=== PATIENT | female | born 1955 | race Caucasian/White ===

== ENCOUNTER 2020-04-29 18:23 | Emergency (ER) | payer BC, SELFPAY ==
--- NOTE | ~2020-04-29 | XR_ITS ---
EXAMINATION: XR chest 2V 04/29/2020 19:13 INDICATION: Left-sided chest pain PROCEDURE: 2 view chest COMPARISON: 01/12/2017 FINDINGS: The lungs are clear. The cardiomediastinal silhouette is within normal limits. There are no pleural effusions. There is no pneumothorax suspected. IMPRESSION: 1: NO ACUTE CARDIOPULMONARY DISEASE. Reviewed, dictated and finalized at location A.
--- NOTE | ~2020-04-29 | CT_ITS ---
EXAMINATION: CT abdomen pelvis w con DATE: 04/29/2020 20:32 INDICATION: Upper abdominal pain TECHNIQUE: Computed tomography (CT) of the abdomen and pelvis was performed with 100 cc Omnipaque 350 intravenous contrast. The dose-length product was 683.80 mGy-cm. Automated exposure control and iter ative reconstruction technique were employed. COMPARISON: None. FINDINGS: The lung bases are unremarkable. Heart size is normal. No significant pleural or pericardia l effusion. The liver, spleen, pancreas, adrenal glands are unremarkable. There are left renal cysts. There is a 4 mm nonobstructing right renal stone. Colonic diverticulosis without evidence for acute diverticulitis. There is a 2 cm left ovarian cyst. Bladder wall is thickened. There is a sclerotic lesion the right ilium, likely a bone island. There i s an atherosclerosis of the aorta. There is mild lumbar spondylosis. No free air or free fluid. Uteru s is surgically absent. IMPRESSION: 1. No acute abdominal abnormality. 2: Nonobstructing right nephrolithiasis. 3: Left ovarian cyst measuring 2 cm. 4: Bladder wall thickening, possibly due to underdistention or cystitis. Reviewed, dictated and finalized at location A.
[2020-04-29 18:30] VITALS: BP 159/81; PULSE 84; RESP 20; TEMP 36.8; O2SAT 100
--- NOTE | 2020-04-29 18:48 | ECG_ITS ---
Measurements Intervals [place] Rate: 71 P: -18 DE: 136 QRS: -15 QRSD: 89 T: 50 QT: 399 QTc: 434 Interpretive Statements SINUS RHYTHM DELAYED PRECORDIAL R/S TRANSITION CONSIDER INFERIOR INFARCT, AGE INDETERMINATE BASELINE ARTIFACT- V5 ABNORMAL ECG Electronically Signed On 04-30-2020 6:51:13 CDT by Robert Brown D.O.
[2020-04-29 19:06] LABS: Basophils Percent Auto 0.4 % (0.2-1.2); Eosinophils Absolute Auto 0.2 K/mm3 (0-0.3); Eosinophils Percent Auto 1.7 % (0-4.4); Hematocrit 41.1 % (37.0-47.0); Hemoglobin 14.2 g/dL (12.0-15.0); Immature Granulocyte Absolute 0.03 K/mm3 (0.00-0.031); Immature Granulocyte Percent A 0.3 % (0-0.5); Lymphocytes Absolute Auto 2.68 K/mm3 (0.9-3.2); Lymphocytes Percent Auto 28.2 % (18.3-44.2); Mean Corpuscular HGB Conc 34.5 g/dl (32-36); Mean Corpuscular Hemoglobin 32.6 pg (26-34); Mean Corpuscular Volume 94.3 fl (80-100); Mean Platelet Volume 9.4 fl (7.4-10.4); Monocytes Absolute Auto 0.5 K/mm3 (0.1-0.6); Monocytes Percent Auto 5.1 % (2.6-8.5); Neutrophils Absolute Auto 6.1 K/mm3 (1.3-6.7); Neutrophils Percent Auto 64.3 % (45.5-73.1); Platelet Count Result 259 k/mm3 (150-375); Red Blood Count 4.36 M/mm3 (4.2-5.4); Red Cell Distribution Width 12.6 % (11.5-14.5); White Blood Count 9.5 K/mm3 (4.5-10.0)
--- NOTE | 2020-04-29 19:15 | ED.ABDPAIN ---
HPI - Abdominal Pain General Chief Complaint: Abdominal Pain Stated Complaint: left upper quad abd pain Time Seen by Provider: 04/29/20 18:36 Source: patient Mode of arrival: ambulatory Limitations: no limitations History of Present Illness HPI narrative: This is a 64 year old female that presents to the ER for abdominal pain since this morning. Reports constant LUQ abdominal pain. Reports it feels like she has a gas bubble. Reports she has been having this pain intermittently for the last couple of months. Reports she has not seen anyone for this yet. Had one episode of diarrhea. Denies fever, chest pain, shortness of breath, nausea, vomiting, dysuria or hematuria. Related Data Allergies Allergy/AdvReac Type Severity Reaction Status Date / Time adhesive Allergy Unknown Rash Verified 04/29/20 19:12 Review of Systems Review of Systems: Narrative: CONSTITUTIONAL: Denies fever CARDIOVASCULAR: Denies chest pain RESPIRATORY: Denies dyspnea. GASTROINTESTINAL: Reports abdominal pain and diarrhea. Denies nausea, vomiting GENITOURINARY: Denies dysuria or hematuria. All systems reviewed & are unremarkable except as noted in HPI and below PMFSH Past Medical History Medical History (Updated 04/29/20 @ 21:09 by Lakeshia Jeter PA-C) History of coronary artery disease History of hyperlipidemia History of hypertension Surgical History Surgical History (Updated 04/29/20 @ 19:18 by Lakeshia Jeter PA-C) History of coronary artery stent placement Exam Narrative: Exam Narrative: GENERAL: Well-appearing, well-nourished, and in no acute distress. HEAD: Normocephalic, atraumatic. EYES: EOMI. CHEST: Clear to auscultation. No respiratory distress. No wheezes rales or rhonchi HEART: Regular rate and rhythm. No murmur heard. Normal peripheral pulses. ABDOMEN: Soft, nontender, nondistended, normal active bowel sounds. EXTREMITIES: Normal range of motion. No edema. SKIN: Warm, dry, no rash. NEURO: No focal deficits. Alert and oriented x3. PSYCH: Normal mood and affect Course Vital Signs Vital signs: Vital Signs Temperature 98.2 F 04/29/20 18:30 Pulse Rate 84 04/29/20 18:30 Respiratory Rate 20 04/29/20 18:30 Blood Pressure 159/81 H 04/29/20 18:30 Pulse Oximetry 100 04/29/20 18:30 Temperature 98.2 F 04/29/20 18:30 Pulse Rate 84 04/29/20 18:30 Respiratory Rate 20 04/29/20 18:30 Blood Pressure 159/81 H 04/29/20 18:30 Pulse Oximetry 100 04/29/20 18:30 MDM - Abdominal Pain MDM Narrative Medical decision making narrative: Patient presents the emergency department for left-sided chest/abdominal pain. She is afebrile and nontoxic-appearing. CBC is without leukocytosis. Metabolic panel without concerning findings. Lipase is not elevated. EKG without concerning changes. Troponin is not elevated. Chest x-ray is normal. D-dimer is not elevated. UA without evidence of infection. CT scan of the abdomen and pelvis is without acute intra-abdominal abnormality. Patient and family updated on case findings. Patient is stable and felt appropriate for further outpatient evaluation. She was given warnings to return to the ER Lab Data Attestation: I reviewed the patient's lab results. Result diagrams: 04/29/20 18:59 04/29/20 18:59 Labs: Lab Results 04/29/20 04/29/20 04/29/20 Range/Units 18:59 18:59 18:59 WBC 9.5 (4.5-10.0) K/mm3 RBC 4.36 (4.2-5.4) M/mm3 Hgb 14.2 (12.0-15.0) g/dL Hct 41.1 (37.0-47.0) % MCV 94.3 (80-100) fl MCH 32.6 (26-34) pg MCHC 34.5 (32-36) g/dl RDW 12.6 (11.5-14.5) % Plt Count 259 (150-375) k/mm3 MPV 9.4 (7.4-10.4) fl Immature Gran % (Auto) 0.3 (0-0.5) % Neut % (Auto) 64.3 (45.5-73.1) % Lymph % (Auto) 28.2 (18.3-44.2) % [place] % (Auto) 5.1 (2.6-8.5) % Eos % (Auto) 1.7 (0-4.4) % Baso % (Auto) 0.4 (0.2-1.2) % Lymph # (Auto) 2.68 (0.9-3.2) K/mm3 [place] # (Auto) 0.5
[2020-04-29 19:16] LABS: INR 0.9; Prothrombin Time 12.3 Seconds (11.1-14.7)
[2020-04-29 19:17] LABS: Partial Thromboplastin Time 27.8 SECONDS (22.3-36.8)
[2020-04-29 19:19] LABS: Alanine Aminotransferase 29 U/L (4-35); Albumin Level 3.9 g/dL (3.5-5.1); Alkaline Phosphatase 79 U/L (38-126); Anion Gap 9.7 mmol/L (7-16); Aspartate Amino Transferase 25 U/L (14-36); Bilirubin,Total 0.5 mg/dL (0.2-1.3); Blood Urea Nitrogen 8 mg/dL (7-17); Calcium 8.8 mg/dL (8.4-10.2); Carbon Dioxide 25 mmol/L (22-30); Chloride 104 mmol/L (98-107); Estimated CRCL calculation 96 ml/min; Estimated Glomerular Filt Rate > 60; Glucose 104 mg/dL (65-105); Lipase 179 U/L (23-300); Potassium 3.7 mmol/L (3.4-5.0); Sodium 135 mmol/L (137-145)
[2020-04-29 19:30] LABS: Troponin I < 0.012 ng/mL (0.000-0.034)
[2020-04-29 19:41] LABS: D Dimer < 0.22 ug/mL (<0.48)
[2020-04-29 19:43] LABS: Add Urine Microscopic? NO; Appearance Urine Clear (Clear); Bacteria Urine Trace /hpf; Bilirubin Urine Negative (Negative); Blood Urine Negative (Negative); Color Urine Straw (Yellow); Glucose Urine UA Negative (Negative); Ketones Urine Negative (Negative); Leukocyte Esterase Ur Negative LEU/UL (Negative); Mucus Urine Rare /lpf; Nitrate Urine Negative (Negative); Protein Urine Negative (Negative); RBC Urine 0-2 /hpf (0-2); Specific Grav Ur 1.005 (1.001-1.035); Squamous Epithelial Cell Urine Rare /hpf (Few); Urobilinogen Urine Negative mg/dL (<2.0); WBC Urine 0-3 /hpf
[2020-04-29 21:14] VITALS: BP 141/87; PULSE 79; RESP 20; O2SAT 98
== END 2020-04-29 21:36 | disposition home or self-care (01) ==
PROVIDERS: Physician Assistant; Emergency Provider Emergency Medicine
DX: R10.12 Left upper quadrant pain (principal); I25.10 Atherosclerotic heart disease of native coronary artery without angina pectoris; E78.5 Hyperlipidemia, unspecified; I10 Essential (primary) hypertension; Z95.5 Presence of coronary angioplasty implant and graft; N20.0 Calculus of kidney; N83.202 Unspecified ovarian cyst, left side; R93.41 Abnormal radiologic findings on diagnostic imaging of renal pelvis, ureter, or bladder; R94.31 Abnormal electrocardiogram [ECG] [EKG]
CPT/HCPCS: 36415; 71046; 74177; 80053; 81003; 83690; 84484; 85025; 85380; 85610; 85730; 93005; 96365; 99284; J0131; Q9967

== ENCOUNTER 2024-10-10 13:35 | Outpatient (CLI) | payer OTHER, SELFPAY ==
--- NOTE | ~2024-10-10 | MM_ITS ---
EXAMINATION: MM screening tiara BI w ella HISTORY: Screening TECHNIQUE: Craniocaudal and mediolateral oblique 3-D tomosynthesis images were obtained and synthetic 2-D images were generated. CAD analysis was submitted and interpreted. COMPARISON: 07/21/2016 BREAST PARENCHYMAL COMPOSITION: Not dense: There are scattered areas of fibroglandular density. FINDINGS: There is no evidence of suspicious mass, calcification, or architectural distortion to sugg est malignancy in either breast. There has been no suspicious interval change. IMPRESSION: 1. No mammographic evidence of malignancy. 2. Recommend routine screening mammography in one year. BI-RADS Category 1: Negative. Reviewed, dictated and finalized at location B. STANT LIBRARIAN
== END 2024-10-10 13:36 | disposition home or self-care (01) ==
LOC: MICIMG 13:37
PROVIDERS: Visit Provider Internal Medicine
DX: Z12.31 Encounter for screening mammogram for malignant neoplasm of breast (principal)
CPT/HCPCS: 77063; 77067

== ENCOUNTER 2024-11-09 18:54 | Emergency (ER) | payer OTHER, SELFPAY ==
--- NOTE | ~2024-11-09 | XR_ITS ---
Exam: Abdomen 1V HISTORY: ureterolithiasis COMPARISON: Reference is made to a CT examination of the abdomen and pelvis performed the same day, a pproximately 1 hour earlier. TECHNIQUE: Supine images of the abdomen FINDINGS: Bowel gas pattern is non-obstructive. There is no free air or deep sulci. Contrast is identified opacifying the left renal collecting system. Contrast is also detected within the right renal cortex of the enlarged right kidney without excretio n, consistent with patient's history of obstruction on CT examination. Contrast also opacifies of the bladder, precluding adequate visualization of the 6.4mm calculus. Lung bases are unremarkable. Bones and soft tissues are unremarkable. IMPRESSION: Nonspecific, nonobstructive bowel gas pattern. Excretion from the left kidney. Persistent nephrogram phase of the right kidney, consistent with obstruction. Reviewed, dictated and finalized at location [facility]
--- NOTE | ~2024-11-09 | CT_ITS ---
CLINICAL INDICATION: Right-sided abdominal pain COMPARISON: 04/29/2020. TECHNIQUE: Multiple contiguous axial images of the abdomen and pelvis were performed following the ad ministration of with 100 mL Omnipaque-350 intravenous contrast The dose-length product (DLP) was 339.43 mGy-cm. Automated exposure control and iterative reconstruction technique were employed. FINDINGS/OBSERVATIONS: Visualized lower thorax: The bilateral lung bases are clear. The heart is of normal size, without pericardial effusion. Liver: The liver enhances homogeneously and is borderline enlarged measuring 19 cm in longitudinal dimension . Gallbladder and biliary system: The gallbladder is only minimally distended, and otherwise unremarkable. Pancreas: The pancreas enhances homogeneously without ductal dilatation. Spleen: The spleen enhances homogeneously and is not enlarged measuring 6 cm in longitudinal dimension. Kidneys: Significant right-sided hydroureteronephrosis extending to the distal right ureter where a 6.4 mm magdalena culus is identified. Mild left-sided hydroureteronephrosis secondary to chronic ureteropelvic junction obstruction. Adrenal glands: Unremarkable. Gastrointestinal tract: Colonic diverticulosis without surrounding inflammatory change. Appendix: The air-filled appendix is of normal caliber (axial series, images 117 through 128). Vasculature: Calcified atherosclerotic disease. Lymph nodes: No pathologically enlarged or morphologically suspicious lymph nodes within the retroperitoneum or at the root of the mesentery. Pelvic structures: The bladder is decompressed and otherwise unremarkable. The uterus is either surgically absent or markedly atrophic. Body wall and musculoskeletal: Small fat-containing umbilical hernia. No significant degenerative disease within the lower thoracic or lumbosacral spines. IMPRESSION: Significant right-sided hydroureteronephrosis secondary to a 6.4 mm calculus within the distal right ureter. Reviewed, dictated and finalized at location A. [employer] IMPRESSION: Significant right-sided hydroureteronephrosis secondary to a 6.4 mm calculus wi thin the distal right ureter.
--- OUTSIDE RECORDS SUMMARY | 2024-11-09 18:57 | XMS_ITS | Clinical Summary ---
Author Organization [facility] [address] Address [address] [place] [address] Care Team Providers Care Scientific Laboratory Supervisor Name Role Phone Haroon Casey MD Primary Care Provider [phone] Allergies No known active allergies Medications famotidine (PEPCID AC) 10 mg tablet take 1 tablet by oral route every day as needed 0 0 01/28/20 17 Active mometasone (NASONEX) 50 mcg/actuation nasal sprayIndicatio ns:Chronic Non-Allergic Rhinitis Administer 2 sprays into each nostril daily. 17 g 11 04/25/20 17 Active cyanocobalamin (Vitamin B-12) 1,000 mcg tabletIndicati ons:Prevention of Vitamin B12 Deficiency Take 1 tablet (1,000 mcg total) by mouth daily Active GLUCOSAMINE/CH ONDR CHAPA A SOD (GLUCOSAMINE-C HONDROITIN) 1,500-1,200 mg/30 mL liquid Take by mouth. Activ e multivitamin capsule Take 1 capsule by mouth daily Active aspirin 81 mg chewable tablet TAKE 1 TABLET BY MOUTH EVERY DAY 90 tablet 2 12/10/19 22 Active fexofenadine (MARKIE) 180 mg tabletIndicati ons:Non-season al allergic rhinitis due to pollen Take 1 tablet (180 mg total) by mouth daily as needed (congestion) 30 tablet 11 07/11/20 23 Active nitroglycerin (NITROSTAT) 0.[address] 1 tablet (0.4 mg total) under the tongue every 5 (five) minutes as needed for chest pain May repeat dose q 5 min, up to 3 doses total 25 tablet 11 07/23/20 24 025 Active lisinopriL (PRINIVIL,ZEST RIL) 10 mg tablet TAKE 1 TABLET BY MOUTH EVERY DAY 90 tablet 3 07/27/20 24 Active atorvastatin (LIPITOR) 40 mg tablet Take 1 tablet (40 mg total) by mouth daily 90 tablet 3 07/27/20 24 Active metoprolol tartrate (LOPRESSOR) 25 mg immediate release tablet TAKE 1 TABLET BY MOUTH TWICE A DAY 180 tablet 2 10/18/19 25 Active metoprolol tartrate (LOPRESSOR) 25 mg immediate release tablet Take 1 tablet (25 mg total) by mouth 2 (two) times a day 180 tablet 07/23/20 24 025 Discontinued Active Problems Problem Noted Date Diagnosed Date Weight loss 01/04/2022 Left upper quadrant abdominal pain 12/29/2020 Other fatigue 12/04/2018 Coronary artery disease invo lving [place] coronary artery of [place] heart without angina pectoris 04/25/2017 Assessment & Plan (10/31/2017 12:36 PM BLENDING TANK TENDER): Continue aspirin indefinitely. After January 2018 we may reduce Brilinta from 90 mg twice a day to 60 mg p.o. b.i.d.. Assessment & Plan (04/25/2017 12:46 PM CDT): Continue aspirin, statin beta-blaine and ticagrelor. She does have easy bruising and therefore I offered her to switch ticagrelor to Plavix but she wants to observe at this time. Mixed hyperlipidemia 04/25/2017 Assessment & Plan (10/31/2017 12:36 PM BLENDING TANK TENDER): Continue Lipitor. Assessment & Plan (04/25/2017 12:46 PM CDT): Continue Lipitor 40 mg daily. Lipids controlled on lipid panel checked today. Tobacco abuse counseling 04/25/2017 Assessment & Plan (10/31/2017 12:36 PM BLENDING TANK TENDER): She appears to be and willing to quit smoking although advised about the risks of continuing smoking. Assessment & Plan (04/25/2017 12:47 PM CDT): I counseled the patient on the importance of quitting smoking. I advised her to try nicotine patches. Will have to reassess next visit Non-seasonal allergic rhinitis due to pollen Assessment & Plan (04/25/2017 12:45 PM CDT): Patient used to take Sudafed in the past which we do not advise given her coronary artery disease. Will prescribe loratadine 10 mg daily as well as knee nasonex nasal spray that she will take it on intermittent days. She does have a previous history of epistaxis and this is why we do want her to take the steroid nasal spray on daily basis Essential hypertension, benign 04/25/2017 Assessment & Plan (10/31/2017 12:36 PM BLENDING TANK TENDER): Blood pressure is controlled. Continue current treatment. Assessment & Plan (04/25/2017 12:49 PM CDT): Controlled. Continue current meds Basal cell carcinoma (BCC) of skin of nose 08/22 Surgical History Surgery Date Site/Laterality Comments CORONARY ANGIOPLASTY CARDIAC CATHETERIZATION Medical History Medical History Date Comments Coronary artery disease Hyperlipidemia Allergic rhinitis Family History Medical History Relation Name Comments Other Father 2 unknown heart c ondition; Cause of : unknown heart condition Other Mother 2 Alive and well; Relation Name Status Comments Father 1 (Age 82) Father 2 Mother 1 Alive Mother 2 Social History Tobacco Use Types Packs/Day Years Used Date Smoking Tobacco: Every Day Cigarettes Smokeless Tobacco: Never Tobacco Cessation:Ready to Q uit: Not Asked; Counseling Given: Not Answered Comments:Smoking History Packs/day: 6 Cigarettes Alcohol Use Standard Drinks/Week Comments Yes 0 (1 standard drink = 0.6 oz pur e alcohol) Personal Safety Answer Date Recorded Getting School Help Needed Not on file 10/24 Comments Unknown Sex and Gender Information Value Date Recorded Sex Assigned at Not on file Legal Sex Female 8:26 PM BLENDING TANK TENDER Gender Identity Not on file Sexual Orientation Not on file Obstetrics History Last Filed Vital Signs Vital Sign Reading Time Taken Comments Blood Pressure 106/70 07/23/2024 1:02 PM CDT Pulse 73 07/23/2024 1:02 PM CDT Temperature - - Respiratory Rate 16 04/25/2017 11:2 7 AM CDT Oxygen Saturation 93% 07/23/2024 1:02 PM CDT Inhaled Oxygen Concentration - - Weight 69.4 kg (152 lb 14.4 oz) 07/23/2024 1:02 PM CDT Height 172.7 cm (5' 8 ) 07/23/2024 1:02 PM CDT Body Mass Index 23.25 07/23/2024 1:02 PM CDT Plan of Treatment Health Maintenance Due Date Last Done Comments Breast Cancer Screening-Mammogram 1955 Colon Cancer Screening-Colonoscopy 1955 Depression Screening 1955 Fall Risk Assessment 1955 Hepatitis C Screening 1955 Osteoporosis Screening-Bone Density Scan 1955 DTaP/Tdap/Td Vaccine (1 - Tdap) 1966 Hepatitis B Screening 1973 Well Visit 65+ 2020 Pneumococcal vaccine 65+ (2 of 2 - PPSV23 or PCV20) 12/28/2021 11/02/2021 Influenza Vaccine (#1) 2024 2, 07/30/2020, 12/12/2019, Additional history exists Zoster Vaccine Completed 04/15/2020, 12/12/2019 Insurance [facility] Care Teams Scientific Laboratory Supervisor Relationship Specialty Start Date End Date Haroon Casey MD PCP - General Internal Medicine 12/29/20
--- OUTSIDE RECORDS SUMMARY | 2024-11-09 18:57 | XMS_ITS ---
Author Organization Unknown Address [address], [place] [address] Phone Care Team Providers Care Zoo Keeper Name Role Phone REX ZHANG Attending Unavailable Immunization Immunization Date Status Additional Notes Code Code System COVID-19, mRNA, LNP-S, bivalent, PF, 30 mcg/0.3 mL dose 10/06/2022 Completed 300 CVX COVID-19, mRNA, LNP-S, PF, 3 0 mcg/0.3 mL dose 09/21/2021 Completed 208 CVX COVID-19, mRNA, LNP-S, PF, 3 0 mcg/0.3 mL dose 01/06/2021 Completed 208 CVX COVID-19, mRNA, LNP-S, PF, 3 0 mcg/0.3 mL dose 12/15/2020 Completed 208 CVX Influenza, adjuvanted, quadrivalent, PF 11/02/2021 Completed 205 CVX Influenza, high-dose, quadrivalent, PF 10/06/2022 Completed 197 CVX zoster recombinant 04/15/2020 Completed 187 CVX zoster recombinant 12/12/2019 Completed 187 CVX Influenza, MDCK, quadrivalen t, preservative 12/12/2019 Completed 186 CVX Influenza, MDCK, quadrivalen t, PF 07/30/2020 Completed 171 CVX Influenza, MDCK, quadrivalen t, PF 08/10/2018 Completed 171 CVX Influenza, split virus, quadrivalent, PF 10/04/2017 Completed 150 CVX Pneumococcal conjugate PCV 13 11/02/2021 Completed 133 CVX Results CBC W DIFF - Collect Date/Ti me: 05/25/2024 14:57 [facility] ID: [id number] [address], [place], [id number] LOINC: 43941-3 Test Value Unit Reference Range Code Code System Flag WBC 6.3 10^3/uL L=3.7 H=10.9 6690-2 LOINC RBC 4.24 10^6/uL L=3.50 H=5.30 789-8 LOINC HEMOGLOBIN 13.9 g/dL L=10.8 H=15.8 718-7 LOINC HEMATOCRIT 40.9 % L=31.5 H=46.1 48390-7 LOINC MCV 97 fl L=81 H=95 787-2 LOINC H MCH 32.8 pg L=28.5 H=32.5 785-6 LOINC H MCHC 34.0 g/dl L=28.0 H=40.0 786-4 LOINC RDW 47 fl L=36 H=52 PLT COUNT 220 10^3/uL L=140 H=450 LY% 47 % L=12 H=42 H MO% 7 % L=1 H=13 NE% 41 % L=48 H=75 L IG% 0 % L=0 H=1 EO% 4 % L=0 H=5 BA% 1 % L=0 H=2 LY# 2.98 10^3/uL L=0.40 H=3.40 MO# 0.46 10^3/uL L=0.15 H=1.20 NE# 2.60 10^3/ul L=1.10 H=7.90 IG# 0.00 10^3/uL L=0.00 H=0.10 EO# 0.23 10^3/uL L=0.00 H=0.50 BA# 0.05 10^3/uL L=0.00 H=0.10 MANUAL DIFF NOT INDICATED MORPHOLOGY COMPREHENSIVE METABOLIC PANE L - Collect Date/Time: 05/25/2024 14:57 [facility] ID: [id number] [address], [place], [id number] LOINC: 85023-5 Test Value Unit Reference Range Code Code System Flag IS PATIENT FASTING? GLUCOSE 110 mg/dl L=70 H=100 2345-7 LOINC H BUN 10 mg/dl L=8 H=23 42213-8 LOINC CREATININE 0.53 mg/dl L=0.60 H=1.10 39010-7 LOINC L AGE 68 yrs eGFR 115 13705-1 LOINC SODIUM 146 mmol/L L=133 H=145 2951-2 LOINC H POTASSIUM 4.2 mmol/L L=3.3 H=5.1 2823-3 LOINC CHLORIDE 109 mmol/L L=96 H=108 07499-7 LOINC H ALK PHOS 83 U/L L=39 H=117 SGOT 19 U/L L=5 H=37 TOTAL BILI 0.3 mg/dl L=0.1 H=1.0 TOTAL PROTEIN 6.1 g/dl L=6.0 H=8.0 ALBUMIN 4.3 g/dl L=3.4 H=4.8 CALCIUM 9.2 mg/dl L=8.4 H=10.2 61890-5 LOINC CO2 27.3 mmol/L L=20.0 H=33.0 88546-0 LOINC ANION GAP 14 mmol/L L=8 H=16 SGPT 22 U/L L=5 H=30 FOLIC ACID LEVEL - Collect D ate/Time: 05/25/2024 14:57 [facility] ID: [id number] [address], [place], [id number] LOINC: 2284-8 Test Value Unit Reference Range Code Code System Flag FOLATE, SERUM 23.7 VITAMIN B12 LEVEL - Collect Date/Time: 05/25/2024 14:57 [facility] ID: [id number] [address], [place], [id number] LOINC: 2132-9 Test Value Unit Reference Range Code Code System Flag VITAMIN B12 2879 608-8643 H LIPID PROFILE - Collect Date /Time: 05/25/2024 14:57 [facility] ID: [id number] [address], [place], [id number] LOINC: Test Value Unit Reference Range Code Code System Flag TRIGLYCERIDE 124 mg/dl L=10 H=200 30228-8 LOINC CHOLESTEROL 132 mg/dl L=50 H=200 49445-1 LOINC HDL 60.0 mg/dl L=50.0 H=60.0 2085-9 LOINC LDL(CALC) 47 MG/DL L=10 H=160 Social History Type Status Start Date End Date Code Code Syst em Smoking History Never smoker (Never Smoked) [id number] SNOMED CT Sex Female Hospital Discharge Instructions Should you have any questions prior to discharge, please contact a member of your healthcare team. If you have left the hospital and have any questions, please contact your primary care physician. Reason For Referral No Data Found Plan of Treatment No Data Found Encounters Encounter Diagnosis Start Date Code Code Sys tem Essential hypertension 05/25/2024 [id number] SNOME D-CT Personal Care Team Section Performer Name Performer Role Active Date Inactive Da john
--- OUTSIDE RECORDS SUMMARY | 2024-11-09 18:57 | XMS_ITS | Encounter Summary ---
Author Organization [facility] Address [address] [facility] [address] [place] [id number] Care Team Providers Care Mandrel Press Hand Name Role Phone No, Physician Primary Care Provider [phone] No, Physician Primary Care Provider [phone] Haroon Casey MD Primary Care Provider [phone] Encounter Details Date Type Department Care Team (Late st Contact Info) Description 01/14/2017 Orders Only [facility] ProviderRandy MD [address] [place] [address] Social History Tobacco Use Types Packs/Day Years Used Date Smoking Tobacco: Never Assessed Comments Unknown Sex and Gender Information Value Date Recorded Sex Assigned at Not on file Legal Sex Female 8:26 PM WASTE DISPOSAL PLANT OPERATOR Gender Identity Not on file Sexual Orientation Not on file documented as of this encounter Plan of Treatment Not on file documented as of this encounter Procedures Procedure Name Priority Date/Time Associated Diagnosis Comments CARDIOLOGY REPORT 01/14/2017 documented in this encounter Results * CARDIOLOGY REPORT (01/14/2017) Anatomical Region Laterality Modality Other Narrative 01/14/2017 Ordered by an unspecified provider. Historical Provider [facility] LEEANNE MOULTON Final Result documented in this encounter Visit Diagnoses Not on filedocumented in this encounter Care Teams Mandrel Press Hand Relationship Specialty Start Date End Date No, Physician PCP - General 03/28/17 12/03/18 No, Physician PCP - General 12/04/18 12/28/20 Haroon Casey MD PCP - General Internal Medicine 12/29/20 documented as of this encounter
--- OUTSIDE RECORDS SUMMARY | 2024-11-09 18:57 | XMS_ITS | Referral Summary ---
Author Organization [facility] [place] [address] Address [address] [place] [address] Care Team Providers Care Advanced Solutions Architect Name Role Phone Haroon Casey MD Primary Care Provider [phone] Allergies No known active allergies Medications famotidine [...] fatigue 12/04/2018 Coronary artery disease invo lving [place] coronary artery of [place] heart without angina pectoris 04/25/2017 Assessment & Plan (10/31/2017 12:36 PM RESEARCH MECHANIC): Continue aspirin indefinitely. After January 2018 we [...] 04/25/2017 Assessment & Plan (10/31/2017 12:36 PM RESEARCH MECHANIC): Continue Lipitor. Assessment & Plan (04/25/2017 12:46 PM CDT): Continue Lipitor 40 mg daily. Lipids controlled on lipid panel checked today. Tobacco abuse counseling 04/25/2017 Assessment & Plan (10/31/2017 12:36 PM RESEARCH MECHANIC): She appears to be and willing to [...] 04/25/2017 Assessment & Plan (10/31/2017 12:36 PM RESEARCH MECHANIC): Blood pressure is controlled. Continue current treatment. Assessment & Plan (04/25/2017 12:49 PM CDT): Controlled. Continue current meds Basal cell carcinoma (BCC) of skin of nose 08/22 Social History Tobacco Use Types Packs/Day Years [...] on file Legal Sex Female 8:26 PM RESEARCH MECHANIC Gender Identity Not on file Sexual Orientation Not on file Last Filed Vital Signs Vital Sign Reading [...] 07/23/2024 1:02 PM CDT Plan of Treatment Not on file [facility] Care Teams Advanced Solutions Architect Relationship Specialty Start Date End Date Haroon Casey MD PCP - General Internal Medicine 12/29/20
[2024-11-09 19:14] VITALS: BP 122/79; PULSE 76; RESP 16; TEMP 36.2; O2SAT 100
[2024-11-09 19:44] LABS: Add Urine Microscopic? YES; Appearance Urine Clear (Clear); Bacteria Urine None Seen /hpf; Bilirubin Urine Negative (Negative); Blood Urine Negative (Negative); Color Urine Yellow (Yellow); Glucose Urine UA Negative (Negative); Ketones Urine 1+ mg/dL (Negative); Leukocyte Esterase Ur Trace LEU/UL (Negative); Nitrate Urine Negative (Negative); Non Pathogenic Casts 0-2; Protein Urine Negative (Negative); Specific Grav Ur 1.009 (1.001-1.035); Squamous Epithelial Cell Urine None Seen /hpf (Few); Urobilinogen Urine 0.2 mg/dL (<2.0)
--- NOTE | 2024-11-09 20:45 | ED.ABDPAIN ---
HPI - Abdominal Pain General Chief Complaint: Abdominal Pain Stated Complaint: possible kidney stone Time Seen by Provider: 11/09/24 20:45 Focused HPI: This is a 69-year-old female that presents to the emergency department for right-sided abdominal pain. Reports associated hematuria. Sent to the ER for for evaluation of possible kidney stone. She recently finished antibiotics for a UTI. GENERAL: Well-appearing, well-nourished, and in no acute distress. HEAD: Normocephalic, atraumatic. CHEST: Clear to auscultation. ?No respiratory distress. HEART: Regular rate and rhythm.? NEURO: ?Alert and oriented x3. Patient screened in triage and initial orders placed.? ?Additional care and disposition to be based upon?diagnostic testing and treatment. Related Data Home Medications ?Medication ?Instructions ?Recorded ?Confirmed ?Last Taken ?Type aspirin 81 mg chewable tablet 04/29/20 Unknown History atorvastatin 40 mg tablet 04/29/20 Unknown History lisinopril 10 mg tablet 04/29/20 Unknown History metoprolol tartrate 25 mg tablet 04/29/20 Unknown History ticagrelor 60 mg tablet (Brilinta) mg 04/29/20 Unknown History Allergies Allergy/AdvReac Type Severity Reaction Status Date / Time adhesive Allergy Unknown Rash Verified 04/29/20 19:12 Review of Systems Review of Systems: CONSTITUTIONAL: Denies fever GASTROINTESTINAL: Reports abdominal pain. Denies nausea, vomiting GENITOURINARY: Reports hematuria. All systems reviewed & are unremarkable except as noted in HPI and below PMFSH Past Medical History Medical History (Updated 11/09/24 @ 23:41 by Lakeshia Jeter PA-C) History of hypertension History of hyperlipidemia History of coronary artery disease Surgical History Surgical History (Updated 04/29/20 @ 19:18 by Lakeshia Jeter PA-C) History of coronary artery stent placement Exam Narrative: GENERAL: Well-appearing, well-nourished, and in no acute distress. HEAD: Normocephalic, atraumatic. EYES: EOMI. CHEST: Clear to auscultation. No respiratory distress. No wheezes rales or rhonchi HEART: Regular rate and rhythm. No murmur heard. Normal peripheral pulses. ABDOMEN: Soft, nontender, nondistended, normal active bowel sounds. EXTREMITIES: Normal range of motion. No edema. SKIN: Warm, dry, no rash. NEURO: No focal deficits. Alert and oriented x3. PSYCH: Normal mood and affect Course Course Emergency Course: patient updated on her workup and agrees with plan of care Consultations Consultation #1: Spoke with Dr. Hernandez about patient and workup. Patient will be started on Flomax and may follow up in clinic Date: 11/09/24 Vital Signs Vital signs: Vital Signs Temperature 97.2 F L 11/09/24 19:14 Pulse Rate 76 11/09/24 19:14 Respiratory Rate 16 11/09/24 19:14 Blood Pressure 122/79 11/09/24 19:14 Pulse Oximetry 100 11/09/24 19:14 Oxygen Delivery Room Air 11/09/24 19:14 Temperature 97.2 F L 11/09/24 19:14 Pulse Rate 74 11/09/24 21:55 Respiratory Rate 18 11/09/24 21:55 Blood Pressure 135/66 11/09/24 21:55 Pulse Oximetry 96 11/09/24 21:56 Oxygen Delivery Room Air 11/09/24 19:14 MDM - Abdominal Pain MDM Narrative Medical decision making narrative: Patient presents to the emergency department for right-sided abdominal pain. She is afebrile and nontoxic appearing. Her vitals are stable. Cbc without leukocytosis. Metabolic panel without concerning findings. Urine with trace leuk esterase, 3-5 red blood cells, 6-10 white blood cells. No bacteria. This will be sent for culture. CT abdomen pelvis shows right-sided hydroureteronephrosis with a 6.4mm calculus in the distal right ureter. Spoke with Dr. Hernandez about patient and workup. Patient will be started on Flomax and may follow up in clinic. She was given warnings to return to the ER Differential Diagnosis Differential diagnosis: Likely calculus of kidney and other (UTI) Lab Data Attestation: I reviewed the patient's lab results. 11/09/24 21:03 11/09/24 21:03 Labs: Lab Results 11/09/24 11/09/24 Range/Units 19:28 21:03 WBC 9.4 (4.5-10.0) K/mm3 RBC 4.37 (4.2-5.4) M/mm3 Hgb 14.4 (12.0-15.0) g/dL Hct 42.4 (37.0-47.0) % MCV 97.0 (80-100) fl MCH 33.0 (26-34) pg MCHC 34.0 (32-36) g/dl RDW 12.8 (11.5-14.5) % Plt Count 215 (150-375) k/mm3 MPV 9.5 (7.4-10.4) fl Immature Gran % (Auto) 0.4 (0-0.5) % Neut % (Auto) 72.1 (45.5-73.1) % Lymph % (Auto) 21.2 (18.3-44.2) % [place] % (Auto) 5.4 (2.6-8.5) % Eos % (Auto) 0.4 (0-4.4) % Baso % (Auto) 0.5 (0.2-1.2) % Lymph # (Auto) 1.99 (0.9-3.2) K/mm3 [place] # (Auto) 0.5 (0.1-0.6) K/mm3 Eos # (Auto) 0.0 (0-0.3) K/mm3 Baso # (Auto) 0.1 (0.0-0.1) K/mm3 Abs Immat Gran (auto) 0.04 H (0.00-0.031) K/mm3 Absolute Neuts (auto) 6.7 (1.3-6.7) K/mm3 Absolute Nucleated RBC 0.000 (0.0-0.012) K/mm3 Nucleated RBC % 0.0 (0.0-0.2) % Sodium 138 (137-145) mmol/L Potassium 4.2 (3.4-5.0) mmol/L Chloride 102 (98-107) mmol/L Carbon Dioxide 30 (22-30) mmol/L Anion Gap 6 (4-12) mmol/L BUN 13 D (7-17) mg/dL Creatinine 0.71 (0.7-1.0) mg/dL Estim Creat Clear Calc 60 ml/min Estimated GFR > 60 (59 - ) Glucose 111 H (65-110) mg/dL Calcium 9.7 (8.4-10.2) mg/dL Total Bilirubin 0.8 (0.2-1.3) mg/dL AST 28 (14-36) U/L ALT 22 (6-35) U/L Alkaline Phosphatase 71 (38-126) U/L Total Protein 7.0 (6.3-8.2) g/dL Albumin 4.0 (3.5-5.1) g/dL Lipase 97 (23-300) U/L Urine Color Yellow (Yellow) Urine Appearance Clear (Clear) Urine pH 7.0 (5.0-9.0) Ur Specific [place] 1.009 (1.001-1.035) Urine Protein Negative (Negative) mg/dL Urine Glucose (UA) Negative (Negative) mg/dL Urine Ketones 1+ H (Negative) mg/dL Ur Blood (Man) Negative (Negative) Urine Nitrate Negative (Negative) Urine Bilirubin Negative (Negative) Urine Urobilinogen 0.2 (<2.0) mg/dL Leukocyte Esterase Rfl Trace H (Negative) BENJY/UL Urine RBC 3-5 H (0-2) /hpf Urine WBC 6-10 H (0-3) /hpf Ur Squamous Epith Cells None seen (Few) /hpf Urine Bacteria None seen /hpf Urine Casts 0-2 Imaging Data Radiologist's impression: ITS Impressions Abdomen/Pelvis CT 11/09/24 21:59 IMPRESSION: Significant right-sided hydroureteronephrosis secondary to a 6.4 mm calculus within the distal right ureter. Abdomen X-Ray 11/09/24 23:11 IMPRESSION: Nonspecific, nonobstructive bowel gas pattern. Excretion from the left kidney. Persistent nephrogram phase of the right kidney, consistent with obstruction. Critical Care Time Critical Care Time Critical Care Time: No Discharge Plan Discharge Clinical Impression: Kidney stone on right side Patient Disposition: Home, Self-Care Condition: Stable Instructions: Kidney Stones (ED), How to Strain Your Urine (ED) Additional Instructions: Return to the ER if you experience fever, abdominal pain with nausea and vomiting, you are unable to keep down liquids or solids, blood in the stool, pain or burning with urination, blood in the urine or any other symptoms that are concerning to you Remain well hydrated. Azfy-ofu-vcosffe pain medication as needed. Prescribed pain medication as needed. Strain urine. Take tamsulosin as prescribed Follow up with Urology Patient Language: [place] Citizen Prescriptions: New hydrocodone-acetaminophen 5-325 mg tablet 1 tablet PO Q6H PRN (Reason: pain) Qty: 20 0RF tamsulosin 0.4 mg capsule 0.4 mg PO DAILY Qty: 7 0RF No Action atorvastatin 40 mg tablet lisinopril 10 mg tablet aspirin 81 mg tablet,chewable metoprolol tartrate 25 mg tablet Brilinta 60 mg tablet Follow-up/Referrals: Dain Clarke MD [Physician] - UNKNOWN,DOCTOR [Non-Staff] -
[2024-11-09 21:09] LABS: Basophils Absolute Auto 0.1 K/mm3 (0.0-0.1); Basophils Percent Auto 0.5 % (0.2-1.2); Eosinophils Percent Auto 0.4 % (0-4.4); Hematocrit 42.4 % (37.0-47.0); Hemoglobin 14.4 g/dL (12.0-15.0); Immature Granulocyte Absolute 0.04 K/mm3 (0.00-0.031); Immature Granulocyte Percent A 0.4 % (0-0.5); Lymphocytes Absolute Auto 1.99 K/mm3 (0.9-3.2); Lymphocytes Percent Auto 21.2 % (18.3-44.2); Mean Platelet Volume 9.5 fl (7.4-10.4); Monocytes Absolute Auto 0.5 K/mm3 (0.1-0.6); Monocytes Percent Auto 5.4 % (2.6-8.5); Neutrophils Absolute Auto 6.7 K/mm3 (1.3-6.7); Neutrophils Percent Auto 72.1 % (45.5-73.1); Platelet Count Result 215 k/mm3 (150-375); Red Blood Count 4.37 M/mm3 (4.2-5.4); Red Cell Distribution Width 12.8 % (11.5-14.5); White Blood Count 9.4 K/mm3 (4.5-10.0)
[2024-11-09 21:19] LABS: Alanine Aminotransferase 22 U/L (6-35); Alkaline Phosphatase 71 U/L (38-126); Anion Gap 6 mmol/L (4-12); Aspartate Amino Transferase 28 U/L (14-36); Bilirubin,Total 0.8 mg/dL (0.2-1.3); Blood Urea Nitrogen 13 mg/dL (7-17); Calcium 9.7 mg/dL (8.4-10.2); Carbon Dioxide 30 mmol/L (22-30); Chloride 102 mmol/L (98-107); Estimated CRCL calculation 60 ml/min; Estimated Glomerular Filt Rate > 60; Glucose 111 mg/dL (65-110); Lipase 97 U/L (23-300); Potassium 4.2 mmol/L (3.4-5.0); Sodium 138 mmol/L (137-145)
[2024-11-09 21:55] VITALS: BP 135/66; PULSE 74; RESP 18; O2SAT 74
[2024-11-09 21:56] VITALS: O2SAT 96
--- OUTSIDE RECORDS SUMMARY | 2024-11-09 22:09 | XMS_ITS | Data Portability ---
Author Organization [place] - [facility], Main Office Address [address] [place] [address] Assessment Encounter Date Assessment Date Assessment LastModified by Organization Details LastModified Time 04/12/2023 04/12/2023 Hyperlipidemia CAD hypertension and pain in her hip have been discussed physical therapy and x-ray of the hip blood work for biochemical management of disease processes and medications follow-up in 4 months [email or web address] Not available 04/12/2023 15:18:00 08/16/2023 08/16/2023 Continue current therapy diagnosis assessment plan have been discussed follow-up in 4 months Not available 08/23/2023 19:45:16 Plan of Treatment Reminders Order Date Submit Date Provider Last Modified By Organization Details Last Modified Time Details Appointments None recorded. Lab vitamin B12 + folate, serum or blood 2022 023 jean Not available 4 21:13:18 CBC w/ auto diff 2022 023 KATHI Not available 3 19:16:57 lipid panel, serum 2022 023 KATHI Not available 3 19:20:46 CMP, serum or plasma 2022 023 KATHI Not available 3 19:20:51 Referral physical therapist referral 2022 023 jean [facility], [address] [place], [address], 4 21:10:39 Procedures colonoscopy screening (PROC) 2022 023 jean Friedman MD, [address], [address], [place], [address], 4 15:31:05 Surgeries None recorded. Imaging MAMMO, screening, digital, bilateral 2022 023 KATHI Not available 3 16:12:44 bone density 2022 023 cyahl Not available 4 21:12:44 XR, hip, unilateral 2022 023 KATHI Not available 3 09:32:52 Medication Orders None recorded. Patient TargetsNo targets recorded. Patient InstructionsNo instructions recorded. Reason for Referral Physical Therapist Referral for Pain of left hip joint Referring Physician: Haroon Casey, Internal Medicine, Encounter Date: 04/12/2023 Results Created Date Observation Date Name Description Value Unit Range Abnormal Flag Note LastModifiedBy Organization Detail LastModifiedTime 03/10/2003/10/2021 vitam in D, 25-hy droxy , total , serum vd25oh 86.4 NG/mL 30-100 Vitam in D Statu s: Defic ient: <20 ng/mL Insuf ficie nt: 20-29 ng/mL Suffi cient : 30-10 0 ng/mL Not Available [facility] (Lab) [address] [place], [address], 03/10/2021 21:28:00 06/23/20 21 06/23/2021 LIPID PANEL cholesterol 131 mg/dL 140-19 9 low NIH MALDONADO NSUS RECOM MENDA TION FOR MADELINE STERO L: ADULT CHILD LOW RISK: <200 <170 BORDE RLINE : <200- 239 ----- HIGH RISK: >240 >200 Not Available [facility] (Lab) [address] [place], [address], 06/23/2021 19:20:22 06/23/20 21 06/23/2021 LIPID PANEL triglyceride s 118 mg/dL 0-150 NIH MALDONADO NSUS REPOR T RECOM MENDA TION FOR TRIGL YCERI SOLEDAD: ADULT CHILD LOW RISK: <150 ----- BODER LINE: 150-1 99 ----- HIGH RISK: >200 ----- Not Available [facility] (Lab) [address] [place], [address], 06/23/2021 19:20:22 06/23/20 21 06/23/2021 LIPID PANEL HDL cholesterol 55 mg/dL 40- Not Available [facility] (Lab) [address] [place], [address], 06/23/2021 19:20:22 06/23/20 21 06/23/2021 LIPID PANEL LDL cholesterol, calculated 52 mg/dL 0-130 NIH MALDONADO NSUS REPOR T RECOM MENDA TIONS FOR LDL: ADULT CHILD LOW RISK <130 <110 (OPTI MAL LDL) <100 ----- BORDE RLINE : 130-1 59 ----- HIGH RISK: >160 >130 A TRIGL YCERI DE RESUL T >400 INVAL IDATE S THE CALCU LATIO N FOR LDL FRACT IONAT ION - THE LDL RESUL T WILL NOT BE REPOR CHRISTIANE. Not Available [facility] (Lab) [address] [place], [address], 06/23/2021 19:20:22 06/23/20 21 06/23/2021 COMPR EHENS DARIN METAB OLIC PANEL carbon dioxide 28 mmol/ L 22-30 Not Available [facility] (Lab) [address] [place], [address], 06/23/2021 19:20:18 06/23/2006/23/2021 COMPR EHENS DARIN METAB OLIC PANEL sodium 141 mmol/ L 137-14 5 Not Available [facility] (Lab) [address] [place], [address], 06/23/2021 19:20:18 06/23/20 21 06/23/2021 COMPR EHENS DARIN METAB OLIC PANEL potassium 4.3 mmol/ L 3.5-5. 1 Not Available [facility] (Lab) [address] [place], [address], 06/23/2021 19:20:18 06/23/20 21 06/23/2021 COMPR EHENS DARIN METAB OLIC PANEL chloride 107 mmol/ L 98-107 Not Available [facility] (Lab) [address] [place], [address], 06/23/2021 19:20:18 06/23/20 21 06/23/2021 COMPR EHENS DARIN METAB OLIC PANEL agap 10.3 mmol/ L 14-22 low Not Available [facility] (Lab) [address] [place], [address], 06/23/2021 19:20:18 06/23/20 21 06/23/2021 COMPR EHENS DARIN METAB OLIC PANEL glucose 76 mg/dL 70-99 Not Available [facility] (Lab) [address] [place], [address], 06/23/2021 19:20:18 06/23/20 21 06/23/2021 COMPR EHENS DARIN METAB OLIC PANEL BUN 10 mg/dL 8-19 Not Available [facility] (Lab) [address] [place], [address], 06/23/2021 19:20:18 06/23/20 21 06/23/2021 COMPR EHENS DARIN METAB OLIC PANEL creatinine 0.62 mg/dL 0.66-1 .25 low Not Available [facility] (Lab) [address] [place], [address], 06/23/2021 19:20:18 06/23/20 21 06/23/2021 COMPR EHENS DARIN METAB OLIC PANEL GFR >60 Refer ence Range : Jasper ge GFR Healt hy Adult : >60 mL/mi n/1.7 3 m2 Chron ic Kidne y Disea se: 15-60 mL/mi n/1.7 3 m2 Kidne y Failu re: <15/m L/min /1.73 m2 www.n iddk. nih.g ov MDRD study equat ion hasn' t been valid ated in child marlene <18 yrs of age, pregn ant women , the elder ly >85 yrs of age, or in some racia l or ethni c subgr oups, suc as Hispa nics. Outsi de the valid ated marisabel eters , estim ated GFR is less accur ate requi ring clini magdalena judgm ent on a case by case basis . Clini magdalena inter preta tion for other races and ages must be made by the clini magdalene . Futhe rmore , any of th e limit ation s with the use of serum creat inine relat ed to nutri javon l statu s o r medic ation usage hasn' t accou nted for the MDRD Study equat ion. For perso ns < 18 yrs of age, a pedia tric GFR calcu lator can be locat ed on the [facility] websi te: https :[email or web address] jordan.o rg/pr ofess ional s/kdo qi/gf r_cal culat or Not Available [facility] (Lab) [address] [place], [address], 06/23/2021 19:20:18 06/23/20 21 06/23/2021 COMPR EHENS DARIN METAB OLIC PANEL alkaline phosphatase 68 U/L 38-126 Not Available [facility] (Lab) [address] [place], [address], 06/23/2021 19:20:18 06/23/20 21 06/23/2021 COMPR EHENS DARIN METAB OLIC PANEL alanine aminotransfe rase 20 U/L 0-35 Not Available [facility] (Lab) [address] [place], [address], 06/23/2021 19:20:18 06/23/20 21 06/23/2021 COMPR EHENS DARIN METAB OLIC PANEL aspartate aminotransfe rase 24 U/L 15-37 Not Available [facility] (Lab) [address] [place], [address], 06/23/2021 19:20:18 06/23/20 21 06/23/2021 COMPR EHENS DARIN METAB OLIC PANEL bilirubin, total 0.50 mg/dL 0.20-1 .30 Not Available [facility] (Lab) [address] [place], [address], 06/23/2021 19:20:18 06/23/20 21 06/23/2021 COMPR EHENS DARIN METAB OLIC PANEL calcium 9.9 mg/dL 8.4-10 .2 Not Available [facility] (Lab) [address] [place], [address], 06/23/2021 19:20:18 06/23/20 21 06/23/2021 COMPR EHENS DARIN METAB OLIC PANEL total protein 6.3 g/dL 6.3-8. 2 Not Available [facility] (Lab) [address] [place], [address], 06/23/2021 19:20:18 06/23/20 21 06/23/2021 COMPR EHENS DARIN METAB OLIC PANEL albumin 3.9 g/dL 3.0-4. 4 Not Available [facility] (Lab) [address] [place], [address], 06/23/2021 19:20:18 06/23/20 21 06/23/2021 COMPR EHENS DARIN METAB OLIC PANEL globulin 2.4 g/dL 2.6-4. 2 low Not Available [facility] (Lab) [address] [place], [address], 06/23/2021 19:20:18 06/23/20 21 06/23/2021 COMPR EHENS DARIN METAB OLIC PANEL A/G ratio 1.6 ratio 1.0-2. 0 Not Available [facility] (Lab) [address] [place], [address], 06/23/2021 19:20:18 06/23/20 21 06/23/2021 CBC/C OMPLE TE BLD COUNT W/DIF F mean red cell volume 99.3 fL 82.0-9 9.0 high Not Available [facility] (Lab) [address] [place], [address], 06/23/2021 18:41:04 06/23/20 21 06/23/2021 CBC/C OMPLE TE BLD COUNT W/DIF F white blood cells 5.5 x10'3 /uL 4.2-10 .8 Not Available [facility] (Lab) [address] [place], [address], 06/23/2021 18:41:04 06/23/20 21 06/23/2021 CBC/C OMPLE TE BLD COUNT W/DIF F red blood cells 4.47 x10'6 /uL 3.80-5 .20 Not Available [facility] (Lab) [address] [place], [address], 06/23/2021 18:41:04 06/23/20 21 06/23/2021 CBC/C OMPLE TE BLD COUNT W/DIF F hemoglobin 14.5 g/dL 12.0-1 5.6 Not Available [facility] (Lab) [address] [place], [address], 06/23/2021 18:41:04 06/23/20 21 06/23/2021 CBC/C OMPLE TE BLD COUNT W/DIF F hematocrit 44.4 % 35.7-4 5.7 Not Available [facility] (Lab) [address] [place], [address], 06/23/2021 18:41:04 06/23/20 21 06/23/2021 CBC/C OMPLE TE BLD COUNT W/DIF F mean red cell hemoglobin 32.4 pg 27.0-3 3.0 Not Available [facility] (Lab) [address] [place], [address], 06/23/2021 18:41:04 06/23/20 21 06/23/2021 CBC/C OMPLE TE BLD COUNT W/DIF F mean RBC HGB concentratio n 32.7 g/dL 31.0-3 6.0 Not Available [facility] (Lab) [address] [place], [address], 06/23/2021 18:41:04 06/23/20 21 06/23/2021 CBC/C OMPLE TE BLD COUNT W/DIF F neutrophils 50.8 % 39.0-7 2.0 Not Available [facility] (Lab) [address] [place], [address], 06/23/2021 18:41:04 06/23/2006/23/2021 CBC/C OMPLE TE BLD COUNT W/DIF F red cell distribution width 13.0 % 11.8-1 5.5 Not Available [facility] (Lab) [address] [place], [address], 06/23/2021 18:41:04 06/23/20 21 06/23/2021 CBC/C OMPLE TE BLD COUNT W/DIF F platelets 258 x10'3 /uL 150-40 0 Not Available [facility] (Lab) [address] [place], [address], 06/23/2021 18:41:04 06/23/20 21 06/23/2021 CBC/C OMPLE TE BLD COUNT W/DIF F mean platelet volume 10.1 fL 9.0-12 .4 Not Available [facility] (Lab) [address] [place], [address], 06/23/2021 18:41:04 06/23/20 21 06/23/2021 CBC/C OMPLE TE BLD COUNT W/DIF F lymphocytes 35.9 % 16.0-4 7.0 Not Available [facility] (Lab) [address] [place], [address], 06/23/2021 18:41:04 06/23/2006/23/2021 CBC/C OMPLE TE BLD COUNT W/DIF F monocytes 8.9 % 5.0-12 .0 Not Available [facility] (Lab) [address] [place], [address], 06/23/2021 18:41:04 06/23/2006/23/2021 CBC/C OMPLE TE BLD COUNT W/DIF F eosinophils 3.1 % 1.0-7. 0 Not Available [facility] (Lab) [address] [place], [address], 06/23/2021 18:41:04 06/23/2006/23/2021 CBC/C OMPLE TE BLD COUNT W/DIF F basophils 0.9 % 0.0-2. 0 Not Available [facility] (Lab) [address] [place], [address], 06/23/2021 18:41:04 06/23/2006/23/2021 CBC/C OMPLE TE BLD COUNT W/DIF F immature granulocytes 0.4 % 0.00-0 .50 Not Available [facility] (Lab) [address] [place], [address], 06/23/2021 18:41:04 06/23/2006/23/2021 CBC/C OMPLE TE BLD COUNT W/DIF F neutrophils, absolute count 2.79 x10'3 /uL 1.5-8. 0 Not Available [facility] (Lab) [address] [place], [address], 06/23/2021 18:41:04 06/23/20 21 06/23/2021 CBC/C OMPLE TE BLD COUNT W/DIF F lymphocytes, absolute count 1.97 x10'3 /uL 1.07-3 .43 Not Available [facility] (Lab) [address] [place], [address], 06/23/2021 18:41:04 06/23/2006/23/2021 CBC/C OMPLE TE BLD COUNT W/DIF F monocytes, absolute count 0.49 x10'3 /uL 0.29-0 .99 Not Available [facility] (Lab) [address] [place], [address], 06/23/2021 18:41:04 06/23/2006/23/2021 CBC/C OMPLE TE BLD COUNT W/DIF F eosinophils, absolute count 0.17 x10'3 /uL 0.02-0 .53 Not Available [facility] (Lab) [address] [place], [address], 06/23/2021 18:41:04 06/23/2006/23/2021 CBC/C OMPLE TE BLD COUNT W/DIF F basophils, absolute count 0.05 x10'3 /uL 0.01-0 .08 Not Available [facility] (Lab) [address] [place], [address], 06/23/2021 18:41:04 06/23/2006/23/2021 CBC/C OMPLE TE BLD COUNT W/DIF F immature granulocytes ,absolute 0.02 x10'3 /uL 0.00-0 .05 Not Available [facility] (Lab) [address] [place], [address], 06/23/2021 18:41:04 06/23/2006/23/2021 CBC/C OMPLE TE BLD COUNT W/DIF F nucleated red blood cells 0.0 % -0 Not Available [facility] (Lab) [address] [place], [address], 06/23/2021 18:41:04 06/23/202021 CBC/C OMPLE TE BLD COUNT W/DIF F NRBC# 0.00 x10'3 /uL Not Available [facility] (Lab) [address] [place], [address], 06/23/2021 18:41:04 12/29/19 22 12/28/2021 LIPID PANEL cholesterol 136 mg/dL 140-19 9 low NIH MALDONADO NSUS RECOM MENDA TION FOR MADELINE STERO L: ADULT CHILD LOW RISK: <200 <170 BORDE RLINE : <200- 239 ----- HIGH RISK: >240 >200 Not Available [facility] (Lab) [address] [place] [address], [address], 12/28/2021 20:48:19 12/29/19 22 12/28/2021 LIPID PANEL triglyceride s 102 mg/dL 0-150 NIH MALDONADO NSUS REPOR T RECOM MENDA TION FOR TRIGL YCERI SOLEDAD: ADULT CHILD LOW RISK: <150 ----- BODER LINE: 150-1 99 ----- HIGH RISK: >200 ----- Not Available [facility] (Lab) [address] [place] [address], [address], 12/28/2021 20:48:19 12/29/19 22 12/28/2021 LIPID PANEL HDL cholesterol 58 mg/dL 40- Not Available [facility] (Lab) [address] [place] [address], [address], 12/28/2021 20:48:19 12/29/19 22 12/28/2021 LIPID PANEL LDL cholesterol, calculated 58 mg/dL 0-130 NIH MALDONADO NSUS REPOR T RECOM MENDA TIONS FOR LDL: ADULT CHILD LOW RISK <130 <110 (OPTI MAL LDL) <100 ----- BORDE RLINE : 130-1 59 ----- HIGH RISK: >160 >130 A TRIGL YCERI DE RESUL T >400 INVAL IDATE S THE CALCU LATIO N FOR LDL FRACT IONAT ION - THE LDL RESUL T WILL NOT BE REPOR CHRISTIANE. Not Available [facility] (Lab) [address] [place], [address], 12/28/2021 20:48:19 12/29/19 22 12/28/2021 COMPR EHENS DARIN METAB OLIC PANEL carbon dioxide 23 mmol/ L 22-30 Not Available [facility] (Lab) [address] [place], [address], 12/28/2021 20:48:14 12/29/19 22 12/28/2021 COMPR EHENS DARIN METAB OLIC PANEL sodium 138 mmol/ L 137-14 5 Not Available [facility] (Lab) [address] [place], [address], 12/28/2021 20:48:14 12/29/19 22 12/28/2021 COMPR EHENS DARIN METAB OLIC PANEL potassium 3.9 mmol/ L 3.5-5. 1 Not Available [facility] (Lab) [address] [place], [address], 12/28/2021 20:48:14 12/29/19 22 12/28/2021 COMPR EHENS DARIN METAB OLIC PANEL chloride 109 mmol/ L 98-107 high Not Available [facility] (Lab) [address] [place], [address], 12/28/2021 20:48:14 12/29/19 22 12/28/2021 COMPR EHENS DARIN METAB OLIC PANEL agap 9.9 mmol/ L 14-22 low Not Available [facility] (Lab) [address] [place], [address], 12/28/2021 20:48:14 12/29/19 22 12/28/2021 COMPR EHENS DARIN METAB OLIC PANEL glucose 103 mg/dL 70-99 high Not Available [facility] (Lab) [address] [place], [address], 12/28/2021 20:48:14 12/29/19 22 12/28/2021 COMPR EHENS DARIN METAB OLIC PANEL BUN 10 mg/dL 8-19 Not Available [facility] (Lab) [address] [place], [address], 12/28/2021 20:48:14 12/29/19 22 12/28/2021 COMPR EHENS DARIN METAB OLIC PANEL creatinine 0.52 mg/dL 0.66-1 .25 low Not Available [facility] (Lab) [address] [place], [address], 12/28/2021 20:48:14 12/29/19 22 12/28/2021 COMPR EHENS DARIN METAB OLIC PANEL GFR >60 Refer ence Range : Jasper ge GFR Healt hy Adult : >60 mL/mi n/1.7 3 m2 Chron ic Kidne y Disea se: 15-60 mL/mi n/1.7 3 m2 Kidne y Failu re: <15/m L/min /1.73 m2 www.n iddk. nih.g ov The MDRD study equat ion has not been valid ated in child marlene <18 years of age; pregn ant women ; the elder ly >85 years of age; or in some racia l or ethni c subgr oups, such as [facility] nics. Outsi de the valid ated marisabel eters , estim ated GFR is less accur ate, requi ring clini magdalena judgm ent on a case- by-ca se basis . Clini magdalena inter preta tion for other races and ages must be made by the clini magdalene. The MDRD study equat ion has not been valid ated for the evalu ation of serum creat inine relat ed to nutri javon l statu s or medic ation usage . For perso ns <18 years of age, a pedia tric GFR calcu lator is avail able on the F websi te: https :[email or web address] [email or web address] rg/pr ofess ional s/kdo qi/gf r_cal culat or Not Available [facility] (Lab) [address] [place], [address], 12/28/2021 20:48:14 12/29/19 22 12/28/2021 COMPR EHENS DARIN METAB OLIC PANEL alkaline phosphatase 58 U/L 38-126 Not Available [facility] (Lab) [address] [place], [address], 12/28/2021 20:48:14 12/29/19 22 12/28/2021 COMPR EHENS DARIN METAB OLIC PANEL alanine aminotransfe rase 24 U/L 0-35 Not Available [facility] (Lab) [address] [place], [address], 12/28/2021 20:48:14 12/29/19 22 12/28/2021 COMPR EHENS DARIN METAB OLIC PANEL aspartate aminotransfe rase 24 U/L 15-37 Not Available [facility] (Lab) [address] [place], [address], 12/28/2021 20:48:14 12/29/19 22 12/28/2021 COMPR EHENS DARIN METAB OLIC PANEL bilirubin, total 0.70 mg/dL 0.20-1 .30 Not Available [facility] (Lab) [address] [place], [address], 12/28/2021 20:48:14 12/29/19 22 12/28/2021 COMPR EHENS DARIN METAB OLIC PANEL calcium 9.5 mg/dL 8.4-10 .2 Not Available [facility] (Lab) [address] [place], [address], 12/28/2021 20:48:14 12/29/19 22 12/28/2021 COMPR EHENS DARIN METAB OLIC PANEL A/G ratio 1.6 ratio 1.0-2. 0 Not Available [facility] (Lab) [address] [place], [address], 12/28/2021 20:48:14 12/29/19 22 12/28/2021 COMPR EHENS DARIN METAB OLIC PANEL total protein 6.0 g/dL 6.3-8. 2 low Not Available [facility] (Lab) [address] [place], [address], 12/28/2021 20:48:14 12/29/19 22 12/28/2021 COMPR EHENS DARIN METAB OLIC PANEL albumin 3.7 g/dL 3.0-4. 4 Not Available [facility] (Lab) [address] [place], [address], 12/28/2021 20:48:14 12/29/19 22 12/28/2021 COMPR EHENS DARIN METAB OLIC PANEL globulin 2.3 g/dL 2.6-4. 2 low Not Available [facility] (Lab) [address] [place], [address], 12/28/2021 20:48:14 12/29/19 22 12/28/2021 CBC/C OMPLE TE BLD COUNT W/DIF F hematocrit 40.8 % 35.7-4 5.7 Not Available [facility] (Lab) [address] [place], [address], 12/28/2021 20:38:33 12/29/19 22 12/28/2021 CBC/C OMPLE TE BLD COUNT W/DIF F white blood cells 5.4 x10'3 /uL 4.2-10 .8 Not Available [facility] (Lab) [address] [place], [address], 12/28/2021 20:38:33 12/29/19 22 12/28/2021 CBC/C OMPLE TE BLD COUNT W/DIF F red blood cells 4.14 x10'6 /uL 3.80-5 .20 Not Available [facility] (Lab) [address] [place], [address], 12/28/2021 20:38:33 12/29/19 22 12/28/2021 CBC/C OMPLE TE BLD COUNT W/DIF F hemoglobin 13.8 g/dL 12.0-1 5.6 Not Available [facility] (Lab) [address] [place], [address], 12/28/2021 20:38:33 12/29/19 22 12/28/2021 CBC/C OMPLE TE BLD COUNT W/DIF F mean red cell volume 98.6 fL 82.0-9 9.0 Not Available [facility] (Lab) [address] [place], [address], 12/28/2021 20:38:33 12/29/19 22 12/28/2021 CBC/C OMPLE TE BLD COUNT W/DIF F mean red cell hemoglobin 33.3 pg 27.0-3 3.0 high Not Available [facility] (Lab) [address] [place], [address], 12/28/2021 20:38:33 12/29/19 22 12/28/2021 CBC/C OMPLE TE BLD COUNT W/DIF F mean RBC HGB concentratio n 33.8 g/dL 31.0-3 6.0 Not Available [facility] (Lab) [address] [place], [address], 12/28/2021 20:38:33 12/29/19 22 12/28/2021 CBC/C OMPLE TE BLD COUNT W/DIF F red cell distribution width 13.4 % 11.8-1 5.5 Not Available [facility] (Lab) [address] [place], [address], 12/28/2021 20:38:33 12/29/19 22 12/28/2021 CBC/C OMPLE TE BLD COUNT W/DIF F platelets 232 x10'3 /uL 150-40 0 Not Available [facility] (Lab) [address] [place], [address], 12/28/2021 20:38:33 12/29/19 22 12/28/2021 CBC/C OMPLE TE BLD COUNT W/DIF F mean platelet volume 9.9 fL 9.0-12 .4 Not Available [facility] (Lab) [address] [place], [address], 12/28/2021 20:38:33 12/29/19 22 12/28/2021 CBC/C OMPLE TE BLD COUNT W/DIF F neutrophils 50.4 % 39.0-7 2.0 Not Available [facility] (Lab) [address] [place], [address], 12/28/2021 20:38:33 12/29/19 22 12/28/2021 CBC/C OMPLE TE BLD COUNT W/DIF F lymphocytes 35.8 % 16.0-4 7.0 Not Available [facility] (Lab) [address] [place], [address], 12/28/2021 20:38:33 12/29/19 22 12/28/2021 CBC/C OMPLE TE BLD COUNT W/DIF F monocytes 9.3 % 5.0-12 .0 Not Available [facility] (Lab) [address] [place], [address], 12/28/2021 20:38:33 12/29/19 22 12/28/2021 CBC/C OMPLE TE BLD COUNT W/DIF F eosinophils 3.2 % 1.0-7. 0 Not Available [facility] (Lab) [address] [place], [address], 12/28/2021 20:38:33 12/29/19 22 12/28/2021 CBC/C OMPLE TE BLD COUNT W/DIF F basophils 0.9 % 0.0-2. 0 Not Available [facility] (Lab) [address] [place], [address], 12/28/2021 20:38:33 12/29/19 22 12/28/2021 CBC/C OMPLE TE BLD COUNT W/DIF F immature granulocytes 0.4 % 0.00-0 .50 Not Available [facility] (Lab) [address] [place], [address], 12/28/2021 20:38:33 12/29/19 22 12/28/2021 CBC/C OMPLE TE BLD COUNT W/DIF F neutrophils, absolute count 2.71 x10'3 /uL 1.5-8. 0 Not Available [facility] (Lab) [address] [place], [address], 12/28/2021 20:38:33 12/29/19 22 12/28/2021 CBC/C OMPLE TE BLD COUNT W/DIF F lymphocytes, absolute count 1.92 x10'3 /uL 1.07-3 .43 Not Available [facility] (Lab) [address] [place], [address], 12/28/2021 20:38:33 12/29/19 22 12/28/2021 CBC/C OMPLE TE BLD COUNT W/DIF F monocytes, absolute count 0.50 x10'3 /uL 0.29-0 .99 Not Available [facility] (Lab) [address] [place], [address], 12/28/2021 20:38:33 12/29/19 22 12/28/2021 CBC/C OMPLE TE BLD COUNT W/DIF F eosinophils, absolute count 0.17 x10'3 /uL 0.02-0 .53 Not Available [facility] (Lab) [address] [place], [address], 12/28/2021 20:38:33 12/29/19 22 12/28/2021 CBC/C OMPLE TE BLD COUNT W/DIF F basophils, absolute count 0.05 x10'3 /uL 0.01-0 .08 Not Available [facility] (Lab) [address] [place], [address], 12/28/2021 20:38:33 12/29/19 22 12/28/2021 CBC/C OMPLE TE BLD COUNT W/DIF F immature granulocytes ,absolute 0.02 x10'3 /uL 0.00-0 .05 Not Available [facility] (Lab) [address] [place], [address], 12/28/2021 20:38:33 12/29/19 22 12/28/2021 CBC/C OMPLE TE BLD COUNT W/DIF F nucleated red blood cells 0.0 % -0 Not Available [facility] (Lab) [address] [place], [address], 12/28/2021 20:38:33 12/29/19 22 12/28/2021 CBC/C OMPLE TE BLD COUNT W/DIF F NRBC# 0.00 x10'3 /uL Not Available [facility] (Lab) [address] [place], [address], 12/28/2021 20:38:33 12/29/19 22 01/06/2022 OVA + AMANDA ITE EXAM ova + parasite exam final report These resul ts were obtai kyle using wet prepa ratio n(s) and trich jose stain ed smear . This test does not inclu de testi ng for Crypt ospor idium parvu m, Cyclo spora , or Micro spori debbie. Not Available [facility] (Lab) [address] [place], [address], 01/06/2022 18:09:38 12/29/19 22 01/06/2022 OVA + AMANDA ITE EXAM result 1 commen t No ova, cysts , or amanda ites seen. . One negat darin speci men does not rule out the possi bilit y of a amanda itic infec tion. Perfo rmed at: [facility] [address] [place] [address] [id number] Direc tor: Pb davalos PhD, Phone : [phone] Not Available [facility] (Lab) [address] [place], [address], 01/06/2022 18:09:38 12/29/19 22 12/30/2021 FECAL FAT, QUALI TATIV E fats, neutral normal Alicia l (<60 Dropl ets/H PF) Not Available [facility] (Lab) [address] [place], [address], 12/30/2021 20:09:13 12/29/19 22 12/30/2021 FECAL FAT, QUALI TATIV E fats, total normal Alicia l (<100 Dropl ets/H PF) Perfo rmed at: [facility] n [address] [place] [address] 1262 Lab Direc tor: Pb davalos PhD, Phone : [phone] Not Available [facility] (Lab) [address] [place], [address], 12/30/2021 20:09:13 12/29/19 22 12/28/2021 TEST NOT PERFO RMED tnp see commen t TEST NOT PERFO RMED; STOOL SPECI MEN TOO FORME D Not Available [facility] (Lab) [address] [place], [address], 12/28/2021 21:16:45 04/12/20 23 04/12/2023 CBC/C OMPLE TE BLD COUNT W/DIF F white blood cells 6.0 x10'3 /uL 4.2-10 .8 Not Available [facility] (Lab) [address] [place], [address], 04/12/2023 19:16:57 04/12/20 23 04/12/2023 CBC/C OMPLE TE BLD COUNT W/DIF F red blood cells 4.35 x10'6 /uL 3.80-5 .20 Not Available [facility] (Lab) [address] [place], [address], 04/12/2023 19:16:57 04/12/20 23 04/12/2023 CBC/C OMPLE TE BLD COUNT W/DIF F hemoglobin 14.3 g/dL 12.0-1 5.6 Not Available [facility] (Lab) [address] [place], [address], 04/12/2023 19:16:57 04/12/20 23 04/12/2023 CBC/C OMPLE TE BLD COUNT W/DIF F hematocrit 43.2 % 35.7-4 5.7 Not Available [facility] (Lab) [address] [place], [address], 04/12/2023 19:16:57 04/12/20 23 04/12/2023 CBC/C OMPLE TE BLD COUNT W/DIF F mean red cell volume 99.3 fL 82.0-9 9.0 high Not Available [facility] (Lab) [address] [place], [address], 04/12/2023 19:16:57 04/12/20 23 04/12/2023 CBC/C OMPLE TE BLD COUNT W/DIF F mean red cell hemoglobin 32.9 pg 27.0-3 3.0 Not Available [facility] (Lab) [address] [place], [address], 04/12/2023 19:16:57 04/12/20 23 04/12/2023 CBC/C OMPLE TE BLD COUNT W/DIF F mean RBC HGB concentratio n 33.1 g/dL 31.0-3 6.0 Not Available [facility] (Lab) [address] [place], [address], 04/12/2023 19:16:57 04/12/20 23 04/12/2023 CBC/C OMPLE TE BLD COUNT W/DIF F red cell distribution width 13.1 % 11.8-1 5.5 Not Available [facility] (Lab) [address] [place], [address], 04/12/2023 19:16:57 04/12/20 23 04/12/2023 CBC/C OMPLE TE BLD COUNT W/DIF F platelets 264 x10'3 /uL 150-40 0 Not Available [facility] (Lab) [address] [place], [address], 04/12/2023 19:16:57 04/12/20 23 04/12/2023 CBC/C OMPLE TE BLD COUNT W/DIF F mean platelet volume 10.0 fL 9.0-12 .4 Not Available [facility] (Lab) [address] [place], [address], 04/12/2023 19:16:57 04/12/20 23 04/12/2023 CBC/C OMPLE TE BLD COUNT W/DIF F neutrophils 40.7 % 39.0-7 2.0 Not Available [facility] (Lab) [address] [place], [address], 04/12/2023 19:16:57 04/12/20 23 04/12/2023 CBC/C OMPLE TE BLD COUNT W/DIF F lymphocytes 47.0 % 16.0-4 7.0 Not Available [facility] (Lab) [address] [place], [address], 04/12/2023 19:16:57 04/12/2004/12/2023 CBC/C OMPLE TE BLD COUNT W/DIF F monocytes 7.4 % 5.0-12 .0 Not Available [facility] (Lab) [address] [place], [address], 04/12/2023 19:16:57 04/12/20 23 04/12/2023 CBC/C OMPLE TE BLD COUNT W/DIF F eosinophils 3.7 % 1.0-7. 0 Not Available [facility] (Lab) [address] [place], [address], 04/12/2023 19:16:57 04/12/20 23 04/12/2023 CBC/C OMPLE TE BLD COUNT W/DIF F basophils 1.0 % 0.0-2. 0 Not Available [facility] (Lab) [address] [place], [address], 04/12/2023 19:16:57 04/12/2004/12/2023 CBC/C OMPLE TE BLD COUNT W/DIF F immature granulocytes 0.2 % 0.00-0 .50 Not Available [facility] (Lab) [address] [place], [address], 04/12/2023 19:16:57 04/12/20 23 04/12/2023 CBC/C OMPLE TE BLD COUNT W/DIF F neutrophils, absolute count 2.43 x10'3 /uL 1.5-8. 0 Not Available [facility] (Lab) [address] [place], [address], 04/12/2023 19:16:57 04/12/20 23 04/12/2023 CBC/C OMPLE TE BLD COUNT W/DIF F lymphocytes, absolute count 2.80 x10'3 /uL 1.07-3 .43 Not Available [facility] (Lab) [address] [place], [address], 04/12/2023 19:16:57 04/12/20 23 04/12/2023 CBC/C OMPLE TE BLD COUNT W/DIF F monocytes, absolute count 0.44 x10'3 /uL 0.29-0 .99 Not Available [facility] (Lab) [address] [place], [address], 04/12/2023 19:16:57 04/12/20 23 04/12/2023 CBC/C OMPLE TE BLD COUNT W/DIF F eosinophils, absolute count 0.22 x10'3 /uL 0.02-0 .53 Not Available [facility] (Lab) [address] [place], [address], 04/12/2023 19:16:57 04/12/20 23 04/12/2023 CBC/C OMPLE TE BLD COUNT W/DIF F basophils, absolute count 0.06 x10'3 /uL 0.01-0 .08 Not Available [facility] (Lab) [address] [place], [address], 04/12/2023 19:16:57 04/12/20 23 04/12/2023 CBC/C OMPLE TE BLD COUNT W/DIF F immature granulocytes ,absolute 0.01 x10'3 /uL 0.00-0 .05 Not Available [facility] (Lab) [address] [place], [address], 04/12/2023 19:16:57 04/12/20 23 04/12/2023 CBC/C OMPLE TE BLD COUNT W/DIF F nucleated red blood cells 0.0 % -0 Not Available [facility] (Lab) [address] [place], [address], 04/12/2023 19:16:57 04/12/20 23 04/12/2023 CBC/C OMPLE TE BLD COUNT W/DIF F NRBC# 0.00 x10'3 /uL Not Available [facility] (Lab) [address] [place], [address], 04/12/2023 19:16:57 04/12/20 23 04/12/2023 LIPID PANEL cholesterol 127 mg/dL 140-19 9 low NIH MALDONADO NSUS RECOM MENDA TION FOR MADELINE STERO L: ADULT CHILD LOW RISK: <200 <170 BORDE RLINE : <200- 239 ----- HIGH RISK: >240 >200 Not Available [facility] (Lab) [address] [place], [address], 04/12/2023 19:20:46 04/12/20 23 04/12/2023 LIPID PANEL triglyceride s 140 mg/dL 0-150 NIH MALDONADO NSUS REPOR T RECOM MENDA TION FOR TRIGL YCERI SOLEDAD: ADULT CHILD LOW RISK: <150 ----- BODER LINE: 150-1 99 ----- HIGH RISK: >200 ----- Not Available [facility] (Lab) [address] [place], [address], 04/12/2023 19:20:46 04/12/20 23 04/12/2023 LIPID PANEL HDL cholesterol 63 mg/dL 40- Not Available [facility] (Lab) [address] [place], [address], 04/12/2023 19:20:46 04/12/20 23 04/12/2023 LIPID PANEL LDL cholesterol, calculated 36 mg/dL 0-130 NIH MALDONADO NSUS REPOR T RECOM MENDA TIONS FOR LDL: ADULT CHILD LOW RISK <130 <110 (OPTI MAL LDL) <100 ----- BORDE RLINE : 130-1 59 ----- HIGH RISK: >160 >130 A TRIGL YCERI DE RESUL T >400 INVAL IDATE S THE CALCU LATIO N FOR LDL FRACT IONAT ION - THE LDL RESUL T WILL NOT BE REPOR CHRISTIANE. Not Available [facility] (Lab) [address] [place], [address], 04/12/2023 19:20:46 04/12/2004/12/2023 COMPR EHENS DARIN METAB OLIC PANEL sodium 138 mmol/ L 137-14 5 Not Available [facility] (Lab) [address] [place], [address], 04/12/2023 19:20:51 04/12/20 23 04/12/2023 COMPR EHENS DARIN METAB OLIC PANEL potassium 4.0 mmol/ L 3.5-5. 1 Not Available [facility] (Lab) [address] [place], [address], 04/12/2023 19:20:51 04/12/20 23 04/12/2023 COMPR EHENS DARIN METAB OLIC PANEL chloride 105 mmol/ L 98-107 Not Available [facility] (Lab) [address] [place], [address], 04/12/2023 19:20:51 04/12/20 23 04/12/2023 COMPR EHENS DARIN METAB OLIC PANEL carbon dioxide 27 mmol/ L 22-30 Not Available [facility] (Lab) [address] [place], [address], 04/12/2023 19:20:51 04/12/20 23 04/12/2023 COMPR EHENS DARIN METAB OLIC PANEL anion gap 10.0 mmol/ L 14-22 low Not Available [facility] (Lab) [address] [place], [address], 04/12/2023 19:20:51 04/12/20 23 04/12/2023 COMPR EHENS DARIN METAB OLIC PANEL glucose 111 mg/dL 70-99 high Not Available [facility] (Lab) [address] [place], [address], 04/12/2023 19:20:51 04/12/20 23 04/12/2023 COMPR EHENS DARIN METAB OLIC PANEL BUN 10 mg/dL 8-19 Not Available [facility] (Lab) [address] [place], [address], 04/12/2023 19:20:51 04/12/20 23 04/12/2023 COMPR EHENS DARIN METAB OLIC PANEL creatinine 0.56 mg/dL 0.66-1 .25 low Not Available [facility] (Lab) [address] [place], [address], 04/12/2023 19:20:51 04/12/20 23 04/12/2023 COMPR EHENS DARIN METAB OLIC PANEL GFR >60 Refer ence Range : Jasper ge GFR Healt hy Adult : >60 mL/mi n/1.7 3 m2 Chron ic Kidne y Disea se: 15-60 mL/mi n/1.7 3 m2 Kidne y Failu re: <15/m L/min /1.73 m2 www.n iddk. nih.g ov The MDRD study equat ion has not been valid ated in child marlene <18 years of age; pregn ant women ; the elder ly >85 years of age; or in some racia l or ethni c subgr oups, such as Hispa nics. Outsi de the valid ated marisabel eters , estim ated GFR is less accur ate, requi ring clini magdalena judgm ent on a case- by-ca se basis . Clini magdalena inter preta tion for other races and ages must be made by the clini magdalene. The MDRD study equat ion has not been valid ated for the evalu ation of serum creat inine relat ed to nutri javon l statu s or medic ation usage . For perso ns <18 years of age, a pedia tric GFR calcu lator is avail able on the [facility] websi te: https :[email or web address] swanson.pavan jordan.o rg/pr ofess ional s/kdo qi/gf r_cal culat or Not Available [facility] (Lab) [address] [place], [address], 04/12/2023 19:20:51 04/12/20 23 04/12/2023 COMPR EHENS DARIN METAB OLIC PANEL alkaline phosphatase 81 U/L 38-126 Not Available [facility] (Lab) [address] [place], [address], 04/12/2023 19:20:51 04/12/20 23 04/12/2023 COMPR EHENS DRAIN METAB OLIC PANEL alanine aminotransfe rase 25 U/L 0-35 Not Available [facility] (Lab) [address] [place], [address], 04/12/2023 19:20:51 04/12/20 23 04/12/2023 COMPR EHENS DARIN METAB OLIC PANEL aspartate aminotransfe rase 27 U/L 15-37 Not Available [facility] (Lab) [address] [place], [address], 04/12/2023 19:20:51 04/12/20 23 04/12/2023 COMPR EHENS DARIN METAB OLIC PANEL bilirubin, total 0.40 mg/dL 0.20-1 .30 Not Available [facility] (Lab) [address] [place], [address], 04/12/2023 19:20:51 04/12/20 23 04/12/2023 COMPR EHENS DARIN METAB OLIC PANEL calcium 8.8 mg/dL 8.4-10 .2 Not Available [facility] (Lab) [address] [place], [address], 04/12/2023 19:20:51 04/12/20 23 04/12/2023 COMPR EHENS DARIN METAB OLIC PANEL total protein 6.3 g/dL 6.3-8. 2 Not Available [facility] (Lab) [address] [place], [address], 04/12/2023 19:20:51 04/12/20 23 04/12/2023 COMPR EHENS DARIN METAB OLIC PANEL albumin 3.9 g/dL 3.0-4. 4 Not Available [facility] (Lab) [address] [place], [address], 04/12/2023 19:20:51 04/12/20 23 04/12/2023 COMPR EHENS DARIN METAB OLIC PANEL globulin 2.4 g/dL 2.6-4. 2 low Not Available [facility] (Lab) [address] [place], [address], 04/12/2023 19:20:51 04/12/20 23 04/12/2023 COMPR EHENS DARIN METAB OLIC PANEL A/G ratio 1.6 ratio 1.0-2. 0 Not Available [facility] (Lab) [address] [place], [address], 04/12/2023 19:20:51 04/12/20 23 04/12/2023 VITAM IN B12 (CUCA BRANDEN ) vb12 738 pg/mL 239-93 1 Not Available [facility] (Lab) [address] [place], [address], 04/12/2023 20:23:58 04/12/20 23 04/12/2023 FOLAT E, SERUM /PLAS MA folate >20.0 NG/mL 2.76-2 0.0 Not Available [facility] (Lab) [address] [place], [address], 04/12/2023 20:24:03 12/29/19 22 MAMMO , scree jorge luis, digit al, bilat eral [facility] [address] [place] [address] Patien t Name: TIRSO NAIDU Access ion #: [id number] Sex: F : 1954 7 Locati on: MO2 Attend ing Physic siomara: ASHLEY CASEY Orderi ng Physic siomara: ASHLEY CASEY Exam Date: 022 1:11 PM Exam Name: MG DIGITA L CELESTE BILAT SCREEN Admitt ing Diagno sis(es ): RADIOL OGY REPORT - FINAL EXAM: MG DIGITA L CELESTE BILAT SCREEN HISTOR Y: Screen ing mammog neo 66-yea r-old female with no curren t breast compla ints. COMPAR MICHAEL: 2019, 2011 TECHNI QUE: Bilate ral CC and MLO views of the breast s were perfor med. Digita l Mammog ria images were obtain ed. CAD (compu ter assist ed detect ion) was utiliz ed. FINDIN GS: There are scatte red areas of fibrog landul ar densit y. No masses , asymme tries, suspic ious calcif icatio ns, or andreas ectura l distor tion are seen. Page 1 of 2 [facility] Patti milner Name: TIRSO NAIDU Access ion #: [id number] Sex: F : 1954 7 Exam Date: 1:11 PM Exam Name: MG DIGITA L CELESTE BILAT SCREEN Admitt ing Diagno sis(es ): IMPRES LOLA: BIRADS 1: Assess ment comple te. Negati ve. Recomm end annual screen ing mammog ria. Accord ing to the [employer], yearly mammog papa are recomm ended starti ng at age 40 and contin uing as long as the woman is in good health . Clinic al Breast Exam should be part of the period ic health exam-a bout every 3 years for women in their 20s and 30s and every year for women 40 and over. Breast self-e xam is an option for women in their 20s. Any breast change noted on the breast self-e xam she would be report ed prompt ly to the [facility]. A negati ve mammog ria report should not discou rage follow -up or biopsy of a clinic ally signif icant findin g and/or abnorm ality. Dense breast tissue may obscur e small neopla sms. This patti milner has been entere d into a mammog ria remind er system with a target date for her next mammog neo. Create d and electr onical ly signed by: Carroll hill MD Signed Date: 4:31 PM (CT) Dictat ed by: Carroll hill MD DD: 4:31 PM (CT) DT: 4:31 PM (CT) Page 2 of 2 [id number] [facility] (Imaging) [address] [place], [address], 12/01/2022 14:54:02 01/29/20 22 01/27/2022 , echo ardio gram No observ ation record ed. [id number] [facility] [address], [place], [address], 12/01/2022 14:54:02 04/13/20 23 XR, hip, unila teral [facility] [address] [facility] [place] [address] [phone] Patien t Name: TIRSO NAIDU Access ion #: [id number] Sex: F : 1954 6 Dictat ed By: Ashley aguirre Attend ing Physic siomara: ASHLEY CASEY [facility] Physic siomara: REX ORTIZ Exam Date: 2022 14:13 PM Exam Name: XR HIP/PE LVIS LT 2-3V Admitt ing Diagno sis(es ): CLINIC AL INFORM ATION: Left hip pain. TECHNI QUE: AP and frog-l eg latera l views of the left hip were obtain ed COMPAR MICHAEL: No prior studie s. FINDIN GS: No acute fractu re or disloc ation. Modera te joint space narrow ing in the left hip with mild subcho ndral sclero sis. Mild to modera te sclero sis adjace nt to the left sacroi liac joint. Adjace nt soft tissue s are unrema rkable . IMPRES LOLA: No eviden ce of acute bony abnorm ality. Arthri tic change s as descri bed above. Electr onical ly Signed by: Ashley aguirre at 2022 08:30: 34 AM Page 1 [email or web address] [facility] (Imaging) [address] [place], [address], 05/10/2023 16:32:18 04/15/20 23 bone densi ty [facility] [address] [facility] [place] [address] [phone] Patti milner Name: TIRSO NAIDU Access ion #: [id number] Sex: F : 1954 8 Locati on: RA2 Attend ing Physic siomara: ASHLEY CASEY Orderi ng Physic siomara: ASHLEY CASEY Exam Date: 023 12:57 PM Exam Name: XR DEXA AXIAL/ HIP/PE LVIS/S PINE Admitt ing Diagno sis(es ): RADIOL OGY REPORT - FINAL EXAM: XR DEXA AXIAL/ HIP/PE LVIS/S PINE HISTOR Y: postme nopaus al state 67-yea r-old female with osteop orosis screen ing. COMPAR MICHAEL: DEXA scan dated 2019. TECHNI QUE: Dual energy x-ray of absorp tion examin ation of the bilate ral hips and lumbar spine was perfor med in AP projec tion. FINDIN GS: Lumbar Spine (L1-L4 ): The mean bone minera l densit y is 1.281 g/cm2 hydrox yapati te, correl ating with a T-scor e of 0.7. BMD of lumbar spine is decrea sed 4.8% since the prior study. Bilate ral hips: The mean bone minera l densit y is 0.908 g/cm2 calciu m Page 1 of 2 [facility] Patti t Name: TIRSO NAIDU Access ion #: [id number] Sex: F : 1954 8 Exam Date: 023 12:57 PM Exam Name: XR DEXA AXIAL/ HIP/PE LVIS/S PINE Admitt ing Diagno sis(es ): hydrox yapati te, correl ating with a T-scor e of -0.8. BMD of the hips is decrea sed 4.8% since the prior study. IMPRES LOLA: 1. The patien t's lumbar spine T-scor e is consis tent with normal bone minera l densit y. 2. The patien t's bilate ral hip T-scor e is consis tent with normal bone minera l densit y overal l. It should be noted that the BMD of the right femora l neck is consis tent with osteop enia. Accord ing to the [employer]i zation , T-scor e values greate r than -1.0 are normal , values betwee n -1.0 and -2.5 are catego rized as osteop enia, T-scor e of -2.5 or more are catego rized as osteop orosis . Create d and electr onical ly signed by: Carroll hill MD Signed Date: 1:33 PM (CT) Dictat ed by: Carroll hill MD DD: 1:33 PM (CT) DT: 1:33 PM (CT) Page 2 of 2 [facility] (Imaging) [address] [place], [address], 10/09/2023 21:12:44 04/15/20 23 MAMMO , scree jorge luis, digit al, bilat eral [facility] [address] [place] [address] Patien t Name: TIRSO NAIDU Access ion #: [id number] Sex: F : 1954 8 Dictat ed By: Ashley aguirre Attend ing Physic siomara: ASHLEY CASEY [facility] Physic siomara: REX ORTIZ Exam Date: 2022 12:57 PM Exam Name: MG ROSANGELA ALONSO BILAT SCREEN Admitt ing Diagno sis(es ): CLINIC AL HISTOR Y: Screen ing exam, no breast compla ints. No person al histor y of breast cancer or prior breast interv ention . Family histor y of breast cancer in a matern al cousin and matern al aunt. COMPAR MICHAEL: Prior mammog papa dated 022 and 06/03/20 20. TECHNI QUE: Full field bilate ral digita l mammog ria was perfor med in the CC and MLO projec tions. CAD was utiliz ed. FINDIN GS: There are scatte red fibrog landul ar densit ies (categ ory B). No suspic ious mass, andreas ectura l distor tion, or suspic ious microc alcifi cation s are seen. The axilla e, skin and nipple s are normal . IMPRES LOLA: Normal mammog neo. RECOMM ENDATI ONS: In the absenc e of new breast compla ints, annual screen ing is recomm ended. The patien t will be notifi ed of the mammog ria result s per hospit al protoc ol. BI-RAD S CATEGO RY: 1: Negati ve. Electr onical ly Signed by: Ashley aguirre at 2022 15:10: 24 PM Page 1 [email or web address] [facility] (Imaging) [address] [place], [address], 05/02/2023 17:19:46 10/10/19 25 10/10/2024 imagi ng/so rodriguez tic resul t No observ ation record ed. [facility] [address], [place], [address], 10/10/2024 16:45:16 Result Notes None recorded. Problems Name Problem SNOMED Code Status Onset Date Resolution Date Notes Provider Name and Address Organization Details Recorded Time Swelling of eyelid 730465964 Active 2021 Not Available [facility] 3 08:55:05 Abscess of skin and/or subcutaneo us tissue 89466384 Active Not Available [facility] 3 08:55:06 Sinusitis 81353028 Active Not Available [facility] 3 08:55:06 Abnormal blood pressure 68949518 Active Not Available [facility] 3 08:55:06 Coronary arterioscl erosis 46575118 Active 2019 stent Not Available [facility] 3 08:55:06 Hyperlipid emia 31859834 Active 2019 Not Available [facility] 3 08:55:06 Essential hypertensi on 76909872 Active 2020 Not Available [facility] 3 08:55:06 Diarrhea 88090629 Active 2021 Not Available [facility] 3 08:55:06 Perianal abscess 08030630 Active Not Available [facility] 3 08:55:06 Upper abdominal pain 93470975 Active Not Available [facility] 3 08:55:06 Pain of left hip joint 5411424619076 00 Active 2022 Not Available [facility] 3 08:55:05 Osteoarthr itis 444010757 Active 2022 Kimberly Rico RN [facility] [place] [place] [facility] [employer] [facility] 3 16:40:43 Problem Notes None recorded. Procedures Surgical History Date Name Laterality Status Provider Name and Address Organization Details Recorded Time 7 Stent completed Not Available [facility] 3 14:46:01 other completed Not Available [facility] 10/2022 14:46:01 Hysterectomy completed Not Available [facility] 12/01/2022 14:46:01 Imaging Results Imaging Date Name Status LastModified by Organization Details LastModified Time 12/28/2021 MAMMO, screening, digital, bilateral completed [id number] [facility] (Imaging) [address] [place], [address], 12/01/2022 14:54:02 01/27/2022 US, echocardiogram completed [id number] [facility] [address], [place], [address], 12/01/2022 14:54:02 04/13/2023 XR, hip, unilateral completed [email or web address] [facility] (Imaging) [address] [place], [address], 05/10/2023 16:32:18 04/15/2023 bone density completed [email or web address] [facility] (Imaging) [address] [place], [address], 10/09/2023 21:12:44 04/15/2023 MAMMO, screening, digital, bilateral completed [email or web address] [facility] (Imaging) [address] [facility] [place], [address], 05/02/2023 17:19:46 10/10/2024 imaging/diagnostic result active [facility] [address], [place], [address], 10/10/2024 16:45:16 Procedure Notes None recorded. Medical Equipment None Reported. Allergies Allergen ID Allergen Name Allergen Category Reaction Reaction Severity Criticality Documentation Date Start Date Code Code System Note Provider Name and Address Organization Details Recorded Time 04408 adhesive environme nt,medica tion rash Not available Not available 12/01/2022 [id number] UNK Not Available [facility] 14:53:55 Medications Name Sig Start Date Stop Date Status Note LastModified by Organization Details LastModified Time atorvasta tin 40 mg tablet TAKE 1 TABLET BY MOUTH EVERY DAY active Not Available Not Available No t Available clotrimaz ole 10 mg mukul DISSOLVE 1 MUKUL IN MOUTH 5 TIMES DAILY FOR 14 DAYS 04/12 completed Not Available Not Available Not Available clindamyc in HCl 300 mg capsule TAKE ONE CAPSULE BY MOUTH EVERY 6HR UNTIL ALL TAKEN active Not Available Not Available No t Available tretinoin 0.025 % topical cream APLLY CREAM TO THE AFFECTED AREAS QOD active Not Available Not Available No t Available fexofenad ine 180 mg tablet TAKE 1 TABLET (180 MG TOTAL) BY MOUTH DAILY NEEDED FOR CONGESTI ON active Not Available Not Available No t Available sulfameth oxazole 800 mg-trimet hoprim 160 mg tablet 04/01 completed Not Available Not Available Not Available imiquimod 5 % topical cream packet active Not Available Not Available Not Available cephalexi n 500 mg capsule Take 1 capsule 3 times a day by oral route for 7 days. active Not Available Not Available No t Available erythromy grover 5 mg/gram (0.5 %) eye ointment 04/01 completed Not Available Not Available Not Available clotrimaz ole-betam ethasone 1 %-0.05 % topical cream 04/01 completed Not Available Not Available Not Available lisinopri l 10 mg tablet TAKE 1 TABLET BY MOUTH EVERY DAY active Not Available Not Available No t Available aspirin 81 mg chewable tablet TAKE 1 TABLET BY MOUTH EVERY DAY active Not Available Not Available No t Available Vitamin D2 1,250 mcg (50,000 unit) capsule TK 1 C PO Q WEEK 05/22 completed Not Available Not Available Not Available fluticaso ne propionat e 50 mcg/actua tion nasal spray,debra pension Inhale 2 sprays every day by intranas al route. active Not Available Not Available No t Available loratadin e 10 mg tablet Take 1 tablet every day by oral route. 04/12 completed Not Available Not Available Not Available cholestyr amine (with sugar) 4 gram powder for susp in a packet DIS CNTS IN LIQUID QD FOR 30 DAYS 04/01 completed Not Available Not Available Not Available metoprolo l tartrate 25 mg tablet TAKE 1 TABLET BY MOUTH TWICE A DAY active Not Available Not Available No t Available nitrofura ntoin monohydra te/macroc rystals 100 mg capsule 04/01 completed Not Available Not Available Not Available Pepcid AC prn 04/12 completed Not Available Not Available Not Available Nascobal 500 mcg/spray nasal spray INT 1 SPRAY IN ONE NOSTRIL ONCE WEEKLY. active Not Available Not Available No t Available Suprep Bowel Prep Kit 17.5 gram-3.13 gram-1.6 gram oral solution UTD active Not Available Not Available Not Available cyanocoba branden (vit B-12) 1,000 mcg/mL injection kit Inject 1 mL every month by intramus cular route. 05/22 completed Not Available Not Available Not Available doxycycli ne hyclate 50 mg tablet TAKE 1 TABLET BY MOUTH TWICE A DAY 04/12 completed Not Available Not Available Not Available Brilinta 60 mg tablet TAKE 1 TABLET BY MOUTH TWICE A DAY 04/12 completed cardiolo gist stopped Not Available Not Available Not Available Shingrix (PF) 50 mcg/0.5 mL intramusc ular suspensio n, kit PHARMACI ST ADMINIST ERED IMMUNIZA TION ADMINIST ERED AT TIME OF DISPENSI NG 05/22 completed Not Available Not Available Not Available Flucelvax Quad [id number] 60 mcg (15 mcg x 4)/0.5 mL intramusc ular susp PHARMACI ST ADMINIST ERED IMMUNIZA TION ADMINIST ERED AT TIME OF DISPENSI NG 05/22 completed Not Available Not Available Not Available Vitals Date Recorded Body mass index (BMI) Body mass index (BMI) Body mass index (BMI) Body height Body height Body height Heart rate Heart rate Heart rate Body temperature Body temperature Body temperature Body weight Body weight Body weight Systolic blood pressure Diastolic blood pressure Systolic blood pressure Diastolic blood pressure Systolic blood pressure Diastolic blood pressure Provider Name and Address Organization Details Last Updated DateTime 3 24.3 kg/m2 23.9 kg/m2 23.4 kg/m2 172.72 cm 172.72 cm 172.72 cm 76 /min 76 /min 78 /min 97 [degF] 96.8 [degF] 97.8 [degF] 94258.7 8 g 45142 g 50932.2 2 g 128 mm[Hg] 70 mm[Hg] 120 mm[Hg] 80 mm[Hg] 126 mm[Hg] 70 mm[Hg] Not Available [facility] 14:47:45 Date Recorded Body weight Body mass index (BMI) Body height Body temperature Heart rate Systolic blood pressure Diastolic blood pressure Provider Name and Address Organization Details Last Updated DateTime 3 19718.5 6 g 24.8 kg/m2 172.72 cm 98.2 [degF] 78 /min 108 mm[Hg] 70 mm[Hg] SHASHA Swan [employer] [facility] 3 14:15:23 Date Recorded Body height Body mass index (BMI) Body weight Body temperature Heart rate Systolic blood pressure Diastolic blood pressure Provider Name and Address Organization Details Last Updated DateTime 3 172.72 cm 24.8 kg/m2 02879.5 6 g 98.2 [degF] 83 /min 114 mm[Hg] 80 mm[Hg] SHASHA Swan [facility] 14:34:56 Social History Question Answer Notes LastModified by Organizat ion Details LastModified Time Tobacco Smoking Status Current Every Day Smoker Not Available [employer] 12/01/2022 14:45:46 Do You Have An Advance Directive? No MIGRATION.[id number] Information not available 12/01/2022 What Is Your Level Of Alcohol Consumption? Occasional MIGRATION.951471 1232 Information not available 12/01/2022 Are You Blind Or Do You Have Difficulty Seeing? No MIGRATION.135664 2630 Information not available 12/01/2022 What Is Your Level Of Caffeine Consumption? Occasional MIGRATION.718081 2237 Information not available 12/01/2022 How Much Tobacco Do You Chew? None MIGRATION.280482 2337 Information not available 12/01/2022 In The 14 Days Before Symptom Onset, Have You Had Close Contact With A Laboratory-confir med COVID-19 While That Case Was Ill? No MIGRATION.848671 7708 Information not available 12/01/2022 In The 14 Days Before Symptom Onset, Have You Had Close Contact With A Person Who Is Under Investigation For COVID-19 While That Person Was Ill? No MIGRATION.331814 2985 Information not available 12/01/2022 Are You Deaf Or Do You Have Serious Difficulty Hearing? No MIGRATION.545506 9139 Information not available 12/01/2022 What Type Of Diet Are You Following? REGULAR MIGRATION.028416 8017 Information not available 12/01/2022 Which Illicit Or Recreational Drugs Have You Used? None MIGRATION.231768 1063 Information not available 12/01/2022 Do You Or Have You Ever Used E-cigarettes Or Vape? Never Used Electronic Cigarettes MIGRATION.796176 1471 Information not available 12/01/2022 What Is Your Occupation? Housewife MIGRATION.404971 6731 Information not available 12/01/2022 Are There Any Guns Present In Your Home? Yes MIGRATION.615632 1084 Information not available 12/01/2022 Do You Have A Medical Power Of Assistant Bookkeeper? No MIGRATION.366231 9969 Information not available 12/01/2022 What Was The Date Of Your Most Recent Tobacco Screening? 08/16/2023 Information not available 08/16/2023 At What Age Did You Start Smoking Tobacco? 40 MIGRATION.070313 7220 Information not available 12/01/2022 Are You Passively Exposed To Smoke? Yes MIGRATION.142584 1365 Information not available 12/01/2022 Do You Or Have You Ever Used Smokeless Tobacco? Never Used Smokeless Tobacco MIGRATION.070938 6560 Information not available 12/01/2022 How Much Tobacco Do You Smoke? 0.5 PPD MIGRATION.282809 8775 Information not available 12/01/2022 Do You Use Sunscreen Routinely? Yes MIGRATION.587014 9071 Information not available 12/01/2022 Have You Recently Traveled Abroad? No MIGRATION.422597 8522 Information not available 12/01/2022 Do You Have Any Dietary Restrictions? No MIGRATION.826211 2881 Information not available 12/01/2022 Do You Or Have You Ever Used Any Other Forms Of Tobacco Or Nicotine? No MIGRATION.930235 1952 Information not available 12/01/2022 Sex: Unknown Functional Status Question Answer Note LastModified by Organizat ion Details LastModified Time Do you have difficulty walking or climbing stairs? No MIGRATION.6810645 026 Information not available 12/01/2022 Do you have transportation difficulties? No MIGRATION.4028996 026 Information not available 12/01/2022 Are you able to walk? YESWOREST MIGRATION.8040374 026 Information not available 12/01/2022 Do you have difficulty doing errands alone? No MIGRATION.6512826 026 Information not available 12/01/2022 Are you able to care for yourself? Yes MIGRATION.8940855 026 Information not available 12/01/2022 Do you have difficulty dressing or bathing? No MIGRATION.0215455 026 Information not available 12/01/2022 What is your exercise level? Moderate MIGRATION.9234354 026 Information not available 12/01/2022 Mental Status Question Answer Note LastModified by Organizat ion Details LastModified Time Do you have difficulty concentrating, remembering or making decisions? No MIGRATION.[id number] 6 Information not available 12/01/2022 Family History Relationship Description Onset Age of this Age Resolved Age Notes LastModified by Organization Details LastModified Time Mother Carcinoma in situ of skin MIGRATION.914 [id number] Not available 12/01/2022 14:46:02 Father Cerebrovascu lar accident MIGRATION.999 [id number] Not available 12/01/2022 14:46:02 Father Benign essential hypertension MIGRATION.098 [id number] Not available 12/01/2022 14:46:02 Brother Heart disease MIGRATION.655 [id number] Not available 12/01/2022 14:46:03 Brother Heart disease MIGRATION.799 [id number] Not available 12/01/2022 14:46:03 Medical History Condition Response NERVE DISEASE N BLINDNESS N RHEUMATIC FEVER N KIDNEY STONES N BLADDER PROBLEMS N MRSA N OTHER # 1 N POLIO N LUNG DISEASE/DISORDER N COPD N RADIATION / CHEMOTHERAPY N Other # 2 N BLOOD DISEASES Y SURGERY N EAR OR HEARING PROBLEMS N MUMPS N DEPRESSION (INCLUDING POST ) N BOWEL PROBLEMS N STROKE/TIA N ULCERS N BENIGN PROSTATIC HYPERPLASIA N MEASLES N MYOCARDIAL INFARCTION N OBESITY N GERD/NAUSEA N ANEURYSM N URINARY/BLADDER/KIDNEY PROBLEMS N CORONARY ARTERY DISEASE (CAD) N ADDICTION CONCERNS N Impotence N ENDOMETRIOSIS N USE OF BLOOD THINNERS N SKIN PROBLEMS Y GASTROINTESTINAL DISORDER N PERIPHERAL VASCULAR DISEASE N MUSCLE,JOINT OR BONE PROBLEMS N GASTROINTESTINAL BLEEDING N BLOOD CLOTS N ASTHMA N CATARACTS N ERECTILE DYSFUNCTION N VARICOSITIES N GI PROBLEMS N Low Testosterone N INFERTILITY N AIDS/HIV N CHEMOTHERAPY / RADIATION N LIVER DISEASE N MALE HYPOGONADISM N HYPERTENSION N Deficiency N ANXIETY DISORDER N BLOOD TRANSFUSION N ANEMIA/BLOOD DISORDER N CHRONIC EAR INFECTIONS N BRONCHITIS N TUBERCULOSIS N GLAUCOMA N FOOT PROBLEM N DIVERTICULITIS N SLEEP APNEA N CHICKENPOX N INFECTIOUS DISEASE N PROSTATE N HEART ARRHYTHMIA N INSOMNIA N HIGH CHOLESTEROL / HYPERLIPIDEMIA N HYPERTHYROIDISM N EYE PROBLEMS N NEUROLOGICAL PROBLEMS N EDEMA N CHRONIC PAIN SYNDROME N HYPOTHYROIDISM N CONSTIPATION N CAROTID BLOCKAGE N BACK / NECK PROBLEMS N HAVE YOU BEEN HOSPITALIZED OR SEEN IN [facility] IN THE PAST YEAR ? N ATHEROSCLEROSIS Y BREAST PROBLEMS N DIALYSIS N ECZEMA N OSTEOPOROSIS N ARTHRITIS N APPENDICITIS N DIABETES, TYPE N BAD TEETH N ENT N HEARTBURN / REFLUX N AUTISM SPECTRUM DISORDER (ASD) N HEPATITIS / LIVER DISEASE N GOUT N SLEEP DISORDER N ALZHEIMER'S DISEASE N Brain Problems N HERPES N DEMENTIA N SEIZURES/EPILEPSY N HEADACHES/MIGRAINES N VASCULAR DISEASE N PACEMAKER N Blood Disorder N DIZZINESS N KIDNEY DISEASE N HEART DISEASE/HEART PROBLEMS N MULTIPLE SCLEROSIS N CARDIAC ARRHYTHMIA N CANCER: SPECIFY N Gall Stones N ATRIAL FIBRILLATION N PULMONARY EMBOLISM N AUTOIMMUNE DISEASE N Gynecological HistoryNo gynecological history recorded. Obstetrics History GPAL:G 0 P 0 0 0 0 Immunizations Vaccine Type Date Status Note Provider Nam e and Address Organization Details Recorded Time Influenza, split virus, trivalent, preservative 0 completed Not Available [facility] 04/18/2023 08:55:06 zoster recombinant 0 completed Not Available [facility] 04/18/2023 08:55:06 zoster recombinant 0 completed Not Available [facility] 04/18/2023 08:55:06 Influenza, split virus, quadrivalent, preservative 0 completed Not Available [facility] 04/18/2023 08:55:06 Pneumococcal conjugate PCV 13 2 completed Not Available [facility] 04/18/2023 08:55:06 Influenza, split virus, trivalent, preservative 2 completed Not Available [facility] 04/18/2023 08:55:06 COVID-19, mRNA, LNP-S, PF, 30 mcg/0.3 mL dose 1 completed Not Available [facility] 04/18/2023 08:55:06 COVID-19, mRNA, LNP-S, PF, 30 mcg/0.3 mL dose 1 completed Not Available [facility] 04/18/2023 08:55:06 COVID-19, mRNA, LNP-S, PF, 30 mcg/0.3 mL dose 1 completed Not Available [facility] 04/18/2023 08:55:06 Past Encounters Encounter ID Performer Location Encounter Start Date Encounter Closed Date Diagnosis/Indication Diagnosis SNOMED-CT Code Diagnosis ICD10 Code Diagnosis Note [id number] [facility] [address] , [facility] [address] [place] [address] 01/07/2021 00:00:00 01/07/2021 21:58:52 [id number] [facility] [address] 02/17/2021 00:00:00 02/17/2021 21:19:51 [id number] [facility] [place] [address] 06/23/2021 00:00:00 06/23/2021 23:01:58 [id number] [facility] Internal [facility] [place] [address] [facility] [place] [address] 12/22/2021 00:00:00 01/16/2022 11:02:08 [id number] Haroon Casey MD [facility] [place] [address] [facility] [place] [address] 04/12/2023 14:04:12 04/12/2023 14:50:42 Hyperlipidemia 25526933 E78.5 Coronary arteriosclerosis 89820705 I25.10 Essential hypertension 83464740 I10 Screening mammography 24 825869 Z12.31 Postmenopausal state 764 62337 Z78.0 Pain of le ft hip joint 8821645627 22468 M25.552 Long-term drug therapy 757949991 Z79.899 Screening for malignant neoplasm of colon 061567538 Z12.11 [id number] Haroon Casey MD [facility] [place] [address] [place] [address] [place] [address] 08/16/2023 14:20:57 08/16/2023 15:53:19 Coronary arteriosclerosis 38493772 I25.10 Hyperlipidemia 06505496 E78.5 Essential hypertension 53761574 I10 Health Concerns Section Related Observation LastModified by Organization Detai ls LastModified Time None Recorded Concern Status LastModified by Organization Details LastModified Time None Recorded Advance Directives Directive N: Payers Encounter Date Sequence Insurance Name Policy Number Policy Kulkarni Covered Member ID Kulkarni Member ID Guarantor Name 04/12/2023 1 [employer] (MEDICARE REPLACEMENT PPO) [id number] Angel Caba [id number] Evette Caba 08/16/2023 1 [employer] (MEDICARE REPLACEMENT PPO) [id number] Evette Caba [id number] Evette Caba Notes Date Note Type Note Provider Name and Address Organization Details Recorded Time 04/12/2023 text/html Hypertension no chest pain or dizziness. CAD no chest pain or anginal Crohn's. Hyperlipidemia trying to follow low-fat diet. Needs mammogram. Needs bone density. Pain around left hip for a couple weeks without any problems walking going up and down stairs seems to be the problematic motions [id number] pain has really tried to take anything for it. Haroon Casey MD [address], [place], [address], [place] [facility] [employer] [facility] 04/12/2023 15:18:18 08/16/2023 text/html Hypertension no chest pain or dizziness. CAD no chest pain or anginal Hyperlipidemia trying to follow low-fat diet physical therapy equivocal response with her hip Haroon Casey MD [address], [place], [address], [employer] 08/23/2023 19:45:32 OBGyn Episode No OBEpisode recorded.
--- OUTSIDE RECORDS SUMMARY | 2024-11-09 22:09 | XMS_ITS ---
Author Organization Unknown Address [address] [place], [place] [id number] Phone Care Team Providers Care Surface Boss Name Role Phone REX ZHANG Attending Unavailable [...] DIFF - Collect Date/Ti me: 05/25/2024 14:57 [facility] ID: [id number] [address] [place], [place], [id number] LOINC: 50646-1 Test Value Unit Reference Range Code Code System Flag WBC 6.3 10^3/uL L=3.7 H=10.9 6690-2 LOINC RBC 4.24 10^6/uL L=3.50 H=5.30 789-8 LOINC HEMOGLOBIN 13.9 g/dL L=10.8 H=15.8 718-7 LOINC HEMATOCRIT 40.9 % L=31.5 H=46.1 52602-3 LOINC MCV 97 fl L=81 H=95 787-2 [...] PANE L - Collect Date/Time: 05/25/2024 14:57 [facility] ID: [id number] [address] [place], [place], [address] LOINC: 29741-8 Test Value Unit Reference Range Code Code System Flag IS PATIENT FASTING? GLUCOSE 110 mg/dl L=70 H=100 2345-7 LOINC H BUN 10 mg/dl L=8 H=23 60042-7 LOINC CREATININE 0.53 mg/dl L=0.60 H=1.10 45329-1 LOINC L AGE 68 yrs eGFR 115 92805-6 LOINC SODIUM 146 mmol/L L=133 H=145 2951-2 LOINC H POTASSIUM 4.2 mmol/L L=3.3 H=5.1 2823-3 LOINC CHLORIDE 109 mmol/L L=96 H=108 52317-5 LOINC H ALK PHOS 83 U/L L=39 H=117 SGOT 19 U/L L=5 H=37 TOTAL BILI 0.3 mg/dl L=0.1 H=1.0 TOTAL PROTEIN 6.1 g/dl L=6.0 H=8.0 ALBUMIN 4.3 g/dl L=3.4 H=4.8 CALCIUM 9.2 mg/dl L=8.4 H=10.2 41000-0 LOINC CO2 27.3 mmol/L L=20.0 H=33.0 61874-4 LOINC ANION GAP 14 mmol/L L=8 H=16 SGPT 22 U/L L=5 H=30 FOLIC ACID LEVEL - Collect D ate/Time: 05/25/2024 14:57 [facility] ID: [id number] [address] [place], [place], [id number] LOINC: 2284-8 Test Value Unit Reference Range Code Code System Flag FOLATE, SERUM 23.7 VITAMIN B12 LEVEL - Collect Date/Time: 05/25/2024 14:57 [facility] ID: [id number] [address] [place], [place], [address] LOINC: 2132-9 Test Value Unit Reference Range Code Code System Flag VITAMIN B12 4078 355-1982 H LIPID PROFILE - Collect Date /Time: 05/25/2024 14:57 [facility] ID: [id number] [address] [place], [place], [address] LOINC: Test Value Unit Reference Range Code Code System Flag TRIGLYCERIDE 124 mg/dl L=10 H=200 79225-0 LOINC CHOLESTEROL 132 mg/dl L=50 H=200 16437-3 LOINC HDL 60.0 mg/dl L=50.0 H=60.0 2085-9 LOINC LDL(CALC) 47 MG/DL L=10 H=160 Social History Type Status Start Date End Date Code Code Syst em Smoking History Never smoker (Never Smoked) [id number] SNOMED CT Sex Female Hospital Discharge Instructions Should you have any questions prior to discharge, please contact a member of your healthcare team. If you have left the hospital and have any questions, please contact your primary care physician. Reason For Referral No Data Found Plan of Treatment No Data Found Encounters Encounter Diagnosis Start Date Code Code Sys tem Essential hypertension 05/25/2024 52080515 SNOME D-CT Personal Care Team Section Performer Name Performer Role Active Date Inactive Da john
--- OUTSIDE RECORDS SUMMARY | 2024-11-09 22:09 | XMS_ITS | Clinical Summary ---
Author Organization [facility] [address] Address [address] [place] [address] Care Team Providers Care Scorekeeper Name Role Phone Haroon Casey MD Primary Care Provider Allergies No known active allergies Medications famotidine [...] fatigue 12/04/2018 Coronary artery disease invo lving [place] coronary artery of [place] heart without angina pectoris 04/25/2017 Assessment & Plan (10/31/2017 12:36 PM YARD CONDUCTOR): Continue aspirin indefinitely. After January 2018 we [...] 04/25/2017 Assessment & Plan (10/31/2017 12:36 PM YARD CONDUCTOR): Continue Lipitor. Assessment & Plan (04/25/2017 12:46 PM CDT): Continue Lipitor 40 mg daily. Lipids controlled on lipid panel checked today. Tobacco abuse counseling 04/25/2017 Assessment & Plan (10/31/2017 12:36 PM YARD CONDUCTOR): She appears to be and willing to [...] 04/25/2017 Assessment & Plan (10/31/2017 12:36 PM YARD CONDUCTOR): Blood pressure is controlled. Continue current treatment. [...] on file Legal Sex Female 8:26 PM YARD CONDUCTOR Gender Identity Not on file Sexual Orientation [...] exists Zoster Vaccine Completed 04/15/2020, 12/12/2019 Insurance [facility] Care Teams Scorekeeper Relationship Specialty Start Date End Date Haroon Casey MD PCP - General Internal Medicine 12/29/20
--- OUTSIDE RECORDS SUMMARY | 2024-11-09 22:09 | XMS_ITS | Referral Summary ---
Author Organization [facility] [address] Address [address] [place] [address] Care Team Providers Care Hse Advisor Name Role Phone Haroon Casey MD Primary Care Provider [phone] Allergies No known active allergies Medications famotidine [...] fatigue 12/04/2018 Coronary artery disease invo lving [place] coronary artery of [place] heart without angina pectoris 04/25/2017 Assessment & Plan (10/31/2017 12:36 PM STOKER ERECTOR AND SERVICER): Continue aspirin indefinitely. After January 2018 we [...] 04/25/2017 Assessment & Plan (10/31/2017 12:36 PM STOKER ERECTOR AND SERVICER): Continue Lipitor. Assessment & Plan (04/25/2017 12:46 PM CDT): Continue Lipitor 40 mg daily. Lipids controlled on lipid panel checked today. Tobacco abuse counseling 04/25/2017 Assessment & Plan (10/31/2017 12:36 PM STOKER ERECTOR AND SERVICER): She appears to be and willing to [...] 04/25/2017 Assessment & Plan (10/31/2017 12:36 PM STOKER ERECTOR AND SERVICER): Blood pressure is controlled. Continue current treatment. [...] on file Legal Sex Female 8:26 PM STOKER ERECTOR AND SERVICER Gender Identity Not on file Sexual Orientation [...] Plan of Treatment Not on file [facility] Care Teams Hse Advisor Relationship Specialty Start Date End Date Haroon Casey MD PCP - General Internal Medicine 12/29/20
--- OUTSIDE RECORDS SUMMARY | 2024-11-09 22:09 | XMS_ITS | Encounter Summary ---
Author Organization [facility] Address [address] [facility] [address] [place] [address] Care Team Providers Care Hip Hop Dance Instructor Name Role Phone No, Physician Primary Care Provider [phone] No, Physician Primary Care Provider [phone] Haroon Casey MD Primary Care Provider [phone] Encounter Details Date Type Department Care Team (Late st Contact Info) Description 01/14/2017 Orders Only [facility] ProviderRandy MD [address] [place] [address] Social History Tobacco Use Types Packs/Day Years Used Date Smoking Tobacco: Never Assessed Comments Unknown Sex and Gender Information Value Date Recorded Sex Assigned at Not on file Legal Sex Female 8:26 PM PATIENT PORTAL REPRESENTATIVE Gender Identity Not on file Sexual Orientation [...] on filedocumented in this encounter Care Teams Hip Hop Dance Instructor Relationship Specialty Start Date End Date No, Physician PCP - General 03/28/17 12/03/18 No, Physician PCP - General 12/04/18 12/28/20 Haroon Casey MD PCP - General Internal Medicine 12/29/20 documented as of this encounter
== END 2024-11-10 00:01 | disposition home or self-care (01) ==
PROVIDERS: Emergency Medicine; Emergency Provider Physician Assistant; PCP Internal Medicine
DX: N20.0 Calculus of kidney (principal); Z79.82 Long term (current) use of aspirin; I10 Essential (primary) hypertension; E78.5 Hyperlipidemia, unspecified; I25.10 Atherosclerotic heart disease of native coronary artery without angina pectoris
CPT/HCPCS: 36415; 74018; 74177; 80053; 81001; 83690; 85025; 87086; 99284; Q9967

== ENCOUNTER 2025-09-16 14:37 | Outpatient (CLI) | payer MEDICARE, SELFPAY ==
--- NOTE | ~2025-09-16 | CT_ITS ---
EXAMINATION: CT abdomen w con DATE: 09/16/2025 15:04 INDICATION: Left upper quadrant abdominal pain TECHNIQUE: Computed tomography (CT) of the abdomen and pelvis was performed with 100 mL Omnipaque-350 intravenous contrast. Automated exposure control and iterative reconstruction technique were employed. The dose-length product was 285.78 mGy-cm. COMPARISON: CT abdomen dated 11/09/2024 FINDINGS: Mild dependent atelectasis in the bilateral lower lobes and mild discoid atelectasis at the lingula. Heart size is normal. Atherosclerotic coronary artery calcifications. No pericardial or pleural effusion.. Liver, gallbladder, spleen, pancreas and bilateral adrenal glands are normal. There are a few s ubcentimeter bilateral low-attenuation renal cysts. Mild bilateral hydronephrosis, left greater than right, without evident hydroureter. Visualized portions of bowels are unremarkable with no wall thickening or obstruction. No pathologically enlarged abdominal lymphadenopathy. Moderate disc height loss with sclerotic Modic type III degenerative endplate changes at L1-L2. Otherwise mild lumbar and lower thoracic spondylosis. IMPRESSION: 1. Mild bilateral hydronephrosis, left greater than right, without evident dilation or obstructing stones or masses along the visualized portion of the proximal ureters. Reviewed, dictated and finalized at location A. IMPRESSION: 1. Mild bilateral hydronephrosis, left greater than right, without evident dila tion or obstructing stones or masses along the visualized portion of the proxim al ureters.
[2025-09-16 14:55] LABS: Estimated Glomerular Filt Rate > 60
== END 2025-09-16 14:38 | disposition home or self-care (01) ==
LOC: MICIMG 14:38
PROVIDERS: PCP Internal Medicine; Visit Provider Internal Medicine
DX: N13.30 Unspecified hydronephrosis (principal); R10.12 Left upper quadrant pain
CPT/HCPCS: 74160; Q9967